=== PATIENT | female | born 1955 | race Caucasian/White ===

== ENCOUNTER 2020-04-05 10:34 | Outpatient (REF) | payer MEDICARE, SELFPAY ==
[2020-04-05 14:41] LABS: Alanine Aminotransferase 16 U/L (0-31); Albumin Level 4.2 g/dL (3.5-5.0); Alkaline Phosphatase 57 U/L (39-117); Anion Gap 13 (12-20); Aspartate Amino Transferase 18 U/L (5-31); Bilirubin Total 0.5 mg/dL (0.0-1.0); Blood Urea Nitrogen 16 mg/dL (9-16); Calcium 9.7 mg/dL (8.4-10.2); Carbon Dioxide 31 mmol/L (22-29); Chloride 103 mmol/L (96-108); Cholesterol 164 mg/dL; Estimated Glomerular Filt Rate > 60; Glucose Fasting 94 mg/dL (60-99); HDL Cholesterol 59 mg/dL; LDL Cholesterol Calculated 79 mg/dl; Potassium 4.4 mmol/l (3.3-5.1); Sodium 143 mmol/L (135-145); Triglycerides 131 mg/dL
[2020-04-05 14:52] LABS: Creatinine Urine 127.73 mg/dL; Microalbum/Creatinine Ratio Ur 4.6 ug/mg cr
[2020-04-05 14:56] LABS: Estimated Average Glucose 117 mg/dL; Hemoglobin A1c % 5.7 %
== END 2020-04-05 10:35 | disposition home or self-care (01) ==
LOC: HO.HMGCLDS 10:34
PROVIDERS: PCP Nurse Practitioner Family; Visit Provider Nurse Practitioner Family
DX: Z00.00 Encounter for general adult medical examination without abnormal findings (principal); E11.9 Type 2 diabetes mellitus without complications; Z13.220 Encounter for screening for lipoid disorders; Z13.29 Encounter for screening for other suspected endocrine disorder
CPT/HCPCS: 36415; 80053; 80061; 82043; 83036; 84443

== ENCOUNTER → 2020-04-15 09:51 | Outpatient (BNVA) | payer MEDICARE, SELFPAY | PROVIDERS: PCP Nurse Practitioner Family; Visit Provider Internal Medicine Cardiovascular Disease | DX: I48.0 Paroxysmal atrial fibrillation (principal); I10 Essential (primary) hypertension; G47.33 Obstructive sleep apnea (adult) (pediatric) | CPT/HCPCS: 93005; 99212 ==

== ENCOUNTER 2020-06-03 08:42 | Outpatient (REF) | payer MEDICARE, MEDICAID, SELFPAY ==
--- NOTE | ~2020-06-03 | MM_ITS ---
EXAMINATION: MM SCREENING DIGITAL BREAST TOMOSYNTHESIS, BILATERAL CLINICAL INFORMATION: Screening. Asymptomatic. History remote excisional biopsy right breast. The lifetime risk of breast cancer based on the Tyrer-Cuzick Model is 15%. COMPARISON: Mammography: 09/09/2018, 04/13/2016 TECHNIQUE: Digital breast tomosynthesis is performed in both the craniocaudal and mediolateral oblique views along with computer-aided detection (CAD). Synthesized 2D images are generated from the tomosynthesis. FINDINGS: There are scattered areas of fibroglandular density (ACR BI-RADS breast composition Category b). There are no significant masses, abnormal calcifications, or other abnormalities. There is an old excisional biopsy scar mid upper outer right breast again demonstrated as incidental finding. No significant changes from prior exams. MM/MM tomosynthesis screening BI IMPRESSION: No mammographic evidence of malignancy. Old excisional biopsy scar upper outer right breast. ASSESSMENT: BI-RADS 2: Benign RECOMMENDATION: Routine annual mammography screening. This patient's information was entered into a reminder system with a target due date for their next mammogram.
== END 2020-06-03 08:43 | disposition home or self-care (01) ==
LOC: HO.MAMMO 08:42
PROVIDERS: PCP Nurse Practitioner Family; Visit Provider Nurse Practitioner Family
DX: Z12.31 Encounter for screening mammogram for malignant neoplasm of breast (principal)
CPT/HCPCS: 77063; 77067

== ENCOUNTER 2020-07-09 10:02 | Emergency (ER) | payer MEDICARE, OTHER, SELFPAY ==
--- NOTE | ~2020-07-09 | CT_ITS ---
EXAMINATION: CT ANGIOGRAM NECK WITH CONTRAST CT ANGIOGRAM BRAIN WITH CONTRAST CLINICAL INFORMATION: Off balance and left arm numbness. COMPARISON: None. TECHNIQUE: Initial noncontrast head CT was performed. Test bolus sequences followed by intravenous administration 70 mL of Omnipaque 350. Helical imaging was performed in the axial plane from the thoracic inlet to the skull vertex. Delayed postcontrast imaging of the head was also performed. The data was processed at the radiographer technologist workstation for generation of MIP sequences. Angled MIPs and volume rendered reformatted images were also generated at an offline 3D workstation. Stenoses are assessed in accordance with NASCET criteria unless otherwise indicated. This CT examination was performed using dose optimization techniques as appropriate, variously including the following: *Automated exposure control *Adjustment of mA and/or kV according to patient size (this includes techniques or standardized protocols for targeted exams where dose is matched to indication/reason for exam; i.e. extremities or head) *Use of iterative reconstruction technique DLP: 2171 mGy-cm FINDINGS: Head CT: There is no intracranial hemorrhage, large acute infarction, or mass lesion. The ventricles are normal in size and configuration without evidence of hydrocephalus. No abnormal enhancement is seen on the postcontrast images. The visualized paranasal sinuses and mastoid air cells are clear. Neck CTA: Numerous collateral vessels are seen within the mediastinum and posterior paraspinal region. The phase of imaging is suboptimal for arterial evaluation. The aortic arch and great vessel origins are patent. The bilateral common carotid arteries are patent. Atheromatous changes are seen at the carotid bifurcations without significant stenosis. The vertebral arteries are difficult to evaluate due to significant streak artifact emanating from venous contrast. Where seen, the vertebral arteries appear patent Head CTA: Atheromatous changes are seen at the bilateral carotid siphons. No proximal vessel occlusion is seen. The ACAs and MCAs appear patent with symmetric collaterals. The bilateral vertebral arteries and basilar artery are patent. The certification technician are patent with symmetric collaterals. No definite aneurysm is seen. The dural venous sinuses appear patent. Non-vascular findings: The cervical soft tissues are unremarkable. No consolidation is seen in the upper lungs. Mild degenerative changes are seen within the spine. CT/CT angio head neck IMPRESSION: CT head: No intracranial hemorrhage or large acute infarction. CTA neck: No hemodynamically significant stenosis in the major arteries of the neck. Mild atheromatous changes seen at the carotid bifurcations. Prominent venous collaterals are seen to opacify the mediastinum and paraspinal region. This finding could be related to central venous stenosis or could be secondary to robust injection. CTA head: No large vessel occlusion or significant stenosis within the intracranial circulation.
--- NOTE | ~2020-07-09 | MR_ITS ---
EXAMINATION: MR BRAIN WITHOUT CONTRAST CLINICAL INFORMATION: Ataxia. Left arm numbness. COMPARISON: CTA head and neck from 07/09/2020. TECHNIQUE: MRI of the brain was obtained using routine sequences without contrast. FINDINGS: No focal restricted diffusion is demonstrated to suggest acute or subacute cerebral ischemia. No evidence of acute or chronic hemorrhagic products on heme-sensitive imaging. Scattered periventricular and deep white matter T2 FLAIR hyperintensities consistent with mild underlying microangiopathy. The ventricles are normal in morphology and size. There is a 1.3 cm calcified lesion along the anterior left aspect of the falx cerebri suggestive of a small calcified meningioma. No abnormal mass effect. No midline shift. The sella turcica is expanded and partially empty. No abnormalities of the posterior fossa with normal appearance of the brainstem and cerebellum. The cerebellar tonsils are positioned at the level the foramen magnum. Normal arterial and venous vascular flow voids are present. Normal, homogeneous marrow signal. Mild mucosal thickening of the paranasal sinuses. No signal abnormalities within the mastoids. Right-sided lens extraction. MR/MR head/brain wo con IMPRESSION: 1. No acute intracranial abnormalities. 2. Mild underlying microangiopathy.
[2020-07-09 10:03] VITALS: BP 149/71; PULSE 55; RESP 16; TEMP 36.7; O2SAT 96; BMI 36.1
--- NOTE | 2020-07-09 10:21 | ED_ITS ---
HPI - General Adult General Chief complaint: General Medical <Cody Kamara MD - Last Filed: 07/17/20 08:21> Stated complaint: TINGLING SENSATION HEAD <Cody Kamara MD - Last Filed: 07/17/20 08:21> Time Seen by Provider: 07/09/20 10:21 <Cody Kamara MD - Last Filed: 07/17/20 08:21> Source: patient <Cody Kamara MD - Last Filed: 07/17/20 08:21> Mode of arrival: ambulatory <Cody Kamara MD - Last Filed: 07/17/20 08:21> Limitations: no limitations <Cody Kamara MD - Last Filed: 07/17/20 08:21> History of Present Illness HPI narrative: patient feels off balance for the past three days with numbness to left arm. patient also complaining of Headache <Cody Kamara MD - Last Filed: 07/17/20 08:21> Onset (ago): day(s) <Cody Kamara MD - Last Filed: 07/17/20 08:21> Location: left and upper extremity <Cody Kamara MD - Last Filed: 07/17/20 08:21> Severity: moderate <Cody Kamara MD - Last Filed: 07/17/20 08:21> Associated symptoms: weakness <Cody Kamara MD - Last Filed: 07/17/20 08:21> Related Data Home medications: Home Medications Medication Instructions Recorded Confirmed flu vacc 2020-21(65yr 0.5 ml IM DIRECTED 02/27/20 07/15/20 up)-MF59C(PF) 60 mcg(15 mcgx4)/0.5 mL IM syringe Previous Rx's Medication Instructions Recorded cetirizine 10 mg tablet 10 mg PO BID #180 tab 02/28/20 atenolol 50 mg tablet 50 mg PO BID #180 tab 04/04/20 qanuepgtsd-lrgtbzrbaohrq-tmuzpwsg 1 tab PO Q12H PRN 30 Days #60 tab 04/04/20 50 mg-325 mg-40 mg tablet hydrochlorothiazide 25 mg tablet 25 mg PO DAILY 90 Days #90 tab 04/04/20 lisinopril 2.5 mg tablet 2.5 mg PO DAILY 90 Days #90 tab 04/04/20 omega-3 acid ethyl esters 1 gram 1 cap PO DAILY 90 Days #90 cap 04/04/20 capsule rosuvastatin 20 mg tablet 20 mg PO DAILY 90 Days #90 tab 04/04/20 venlafaxine 150 mg 150 mg PO DAILY 90 Days #90 cap 04/04/20 capsule,extended release 24 hr flecainide 50 mg tablet 150 mg PO .COMPLEX #30 tab 04/09/20 pregabalin 50 mg capsule 50 mg PO TID 90 Days #270 cap 04/11/20 apixaban 5 mg tablet 5 mg PO BID #180 tab 06/17/20 <Cody Kamara MD - Last Filed: 07/17/20 08:21> Allergies/adverse reactions: Allergies Allergy/AdvReac Type Severity Reaction Status Date / Time No Known Allergies Allergy Verified 07/15/20 16:18 [No Known Allergies*] <Cody Kamara MD - Last Filed: 07/17/20 08:21> Review of Systems Constitutional: Constitutional: Reports no additional constitutional complaints <Cody Kamara MD - Last Filed: 07/17/20 08:21> Eyes: Eyes: Reports no additional eye complaints <Cody Kamara MD - Last Filed: 07/17/20 08:21> ENT: Denies dizziness <Cody Kamara MD - Last Filed: 07/17/20 08:21> Cardiovascular: Cardiovascular: Reports no additional cardiovascular complaints <Cody Kamara MD - Last Filed: 07/17/20 08:21> Respiratory: Respiratory: Reports as per HPI <Cody Kamara MD - Last F iled: 07/17/20 08:21> Gastrointestinal: Gastrointestinal: Reports no additional gastrointestinal complaints <Cody Kamara MD - Last Filed: 07/17/20 08:21> Genitourinary: Genitourinary: Reports no additional female genitourinary complaints <Cody Kamara MD - Last Filed: 07/17/20 08:21> Musculoskeletal: Musculoskeletal: Reports no additional musculoskeletal complaints <Cody Kamara MD - Last Filed: 07/17/20 08:21> Integumentary/Breasts: Skin/Breast: Denies rash <Cody Kamara MD - Last Filed: 07/17/20 08:21> Neurologic: Reports system reviewed and no additional complaints, except as documented, Denies dizziness and Denies Sensory deficit (Neuro) <Cody Kamara MD - Last Filed: 07/17/20 08:21> Psychiatric: Psychiatric: Denies anxiety <Cody Kamara MD - Last Filed: 07/17/20 08:21> [facility] Past Medical History Medical History: Medical History Depression Diabetes HTN (hypertension) Migraines Obstructive sleep apnea Osteoarthritis Osteopenia Paroxysmal atrial fibrillation Peripheral neuropathy <Cody Kamara MD - Last Filed: 07/17/20 08:21> Surgical History: Surgical History History of abdominal hernia History of lumpectomy of right breast History of partial colectomy History of total abdominal hysterectomy and bilateral salpingo-oophorectomy <Cody Kamara MD - Last Filed: 07/17/20 08:21> Family History Family History: Family History Father No problems noted. Mother Diabetes mellitus Maternal Grandmother Diabetes mellitus Stroke Maternal Grandfather Lung cancer Smoker <Cody Kamara MD - Last Filed: 07/17/20 08:21> Social History Social History: Social History Alcohol intake: never Smoking Status: Never smoker Substance Use Type: Marijuana <Cody Kamara MD - Last Filed: 07/17/20 08:21> Physical Exam Vital Signs: Vital Signs: Last Vital Signs Temp 98.1 F 07/09/20 16:00 Pulse 50 07/09/20 16:00 Resp 18 07/09/20 16:00 BP 119/52 L 07/09/20 16:00 Pulse Ox 97 07/09/20 16:00 Body Mass Index 36.1 <Cody Kamara MD - Last Filed: 07/17/20 08:21> Vital Signs: Last Vital Signs Temp 98.1 F 07/09/20 16:00 Pulse 50 07/09/20 16:00 Resp 18 07/09/20 16:00 BP 119/52 L 07/09/20 16:00 Pulse Ox 97 07/09/20 16:00 Body Mass Index 36.1 <Rhiannon Ocampo DO - Last Filed: 07/09/20 19:37> Const: Nutritional Appearance: obese <Cody Kamara MD - Last Filed: 07/17/20 08:21> Orientation/consciousness: oriented to person and patient oriented x3 <Cody Kamara MD - Last Filed: 07/17/20 08:21> Limitations: no limitations <Cody Kamara MD - Last Filed: 07/17/20 08:21> HENMT: Head: Yes normal to inspection <Cody Kamara MD - Last Filed: 07/17/20 08:21> Ears: external ears normal <Cody Kamara MD - Last Filed: 07/17/20 08:21> General nose exam: Normal external nose present <Cody Kamara MD - Last Filed: 07/17/20 08:21> Mouth: Normal oral and palatal mucosa present and oropharynx normal <Cody Kamara MD - Last Filed: 07/17/20 08:21> Throat: Yes posterior oropharynx normal <Cody Kamara MD - Last Filed: 07/17/20 08:21> Eyes: General: appearance normal, both eyes and all related structures <Cody Kamara MD - Last Filed: 07/17/20 08:21> Neck: Other: supple <Cody Kamara MD - Last Filed: 07/17/20 08:21> Neck: Yes normal visual inspection <Cody Kamara MD - Last Filed: 07/17/20 08:21> Chest: Chest palpation & inspection: normal inspection of the chest <Cody Kamara MD - Last Filed: 07/17/20 08:21> Resp: Auscultation: clear to auscultation bilaterally <Cody Kamara MD - Last Filed: 07/17/20 08:21> Cardio: Jugular venous distension: no JVD <Cody Kamara MD - Last Filed: 07/17/20 08:21> Rate: regular rate <Cody Kamara MD - Last Filed: 07/17/20 08:21> Rhythm: regular rhythm <Cody Kamara MD - Last Filed: 07/17/20 08:21> Heart sounds: S1 normal heart sound present and S2 normal heart sound present <Cody Kamara MD - Last Filed: 07/17/20 08:21> GI: Inspection: Yes normal to inspection <Cody Kamara MD - Last Filed: 07/17/20 08:21> Palpation (GI): Soft to palpation, nontender and No hepatosplenomegaly present <Cody Kamara MD - Last Filed: 07/17/20 08:21> Auscultation: normal bowel sounds <Cody Kamara MD - Last Filed: 07/17/20 08:21> : General: Yes no CVA tenderness <Cody Kamaar MD - Last Filed: 07/17/20 08:21> Back/Spine/Pelvis: Back: no CVA tenderness <Cody Kamara MD - Last Filed: 07/17/20 08:21> Skin: General skin exam: no rashes or lesions noted <Cody Kamara MD - Last Filed: 07/17/20 08:21> Neuro: General: oriented to person and patient oriented x3 <Cody Kamara MD - Last Filed: 07/17/20 08:21> Cranial nerves: Yes CN's II-XII intact bilaterally <Cody Kamara MD - Last Filed: 07/17/20 08:21> Motor exam (neuro): 5/5 motor strength present throughout <Cody Kamara MD - Last Filed: 07/17/20 08:21> Sensory Exam: No Sensory deficit (Neuro) <Cody Kamara MD - Last Filed: 07/17/20 08:21> Extrem: General: Yes normal to inspection <Cody Kamara MD - Last Filed: 07/17/20 08:21> Psych: Appearance: grossly normal <Cody Kamara MD - Last Filed: 04/28/21 08:21> NIH Stroke Scale Internal: 24 hours post onset of symptoms within 20 min <Cody Kamara MD - Last Filed: 07/17/20 08:21> Level of Consciousness: Alert <Cody Kamara MD - Last Filed: 07/17/20 08:21> Level of Consciousness Questions: Answers both questions correctly <Cody Kamara MD - Last Filed: 07/17/20 08:21> Level of Consciousness Commands: Performs both tasks correctly <Cody Kamara MD - Last Filed: 07/17/20 08:21> Best Gaze: Normal <Cody Kamara MD - Last Filed: 07/17/20 08:21> Visual: No visual loss <Cody Kamara MD - Last Filed: 07/17/20 08:21> Facial Palsy: Normal <Cody Kamara MD - Last Filed: 07/17/20 08:21> Motor Arm (Right): No drift <Cody Kamara MD - Last Filed: 07/17/20 08:21> Motor Arm (Left): No drift <Cody Kamara MD - Last Filed: 07/17/20 08:21> Motor Leg (Right): No drift <Cody Kamara MD - Last Filed: 07/17/20 08:21> Motor Leg (Left): No drift <Cody Kamara MD - Last Filed: 07/17/20 08:21> Limb Ataxia: Absent <Cody Kamara MD - Last Filed: 07/17/20 08:21> Sensory: Mild to moderate sensory loss <Cody Kamara MD - Last Filed: 07/17/20 08:21> Best Language: No aphasia <Cody Kamara MD - Last Filed: 07/17/20 08:21> Dysarthia: Normal <Cody Kamara MD - Last Filed: 07/17/20 08:21> Extinction and Inattention: No abnormality <Cody Kamara MD - Last Filed: 07/17/20 08:21> Score: 1 <Cody Kamara MD - Last Filed: 07/17/20 08:21> Course Course Course Narrative: Discussed with Dr. Zimmerman of neuro will try and obtain MRI <Cody Kamara MD - Last Filed: 07/17/20 08:21> sign out received that symptoms seemed atypical MRI requested by Neurology per Dr. Kamara if normal it would be okay to send home, all of patient's symptoms resolved and MRI negative <Rhiannon Ocampo DO - Last Filed: 07/09/20 19:37> Medical Decision Making Lab Data Result diagrams: : 07/09/20 11:25 07/09/20 11:25 <Cody Kamara MD - Last Filed: 07/17/20 08:21> Labs: Lab Results 07/09/20 07/09/20 07/09/20 Range/Units 10:30 11:25 11:25 WBC 8.1 (4.8-10.8) X10*3/uL RBC 4.97 (4.20-5.50) X10*6/uL Hgb 15.0 (12.0-16.0) g/dl Hct 43.9 (37-47) % MCV 88.3 (80-98) fL MCH 30.2 (27.0-33.0) pg MCHC 34.2 (31.0-35.0) g/dl RDW 13.2 (11.0-16.0) % Plt Count 213 (160-400) X10*3/uL MPV 10.0 (9.4-12.3) fL Immature Gran % (Auto) 0.4 (0.0-0.4) % Neut % (Auto) 72.2 (45-73) % Lymph % (Auto) 20.7 (20-40) % [place] % (Auto) 4.7 (2-11) % Eos % (Auto) 1.6 (0-4) % Baso % (Auto) 0.4 (0-2) % Lymph # (Auto) 1.7 (1.2-4.9) X10*3/uL [place] # (Auto) 0.4 (0.1-1.2) X10*3/uL Eos # (Auto) 0.1 (0.0-0.4) X10*3/uL Baso # (Auto) 0.0 (0.0-0.2) X10*3/uL Abs Immat Gran (auto) 0.03 (0.00-0.03) X10*3/uL Absolute Neuts (auto) 5.8 (2.0-8.3) X10*3/uL Absolute Nucleated RBC 0.000 (0.0-0.012) X10*3/uL Nucleated RBC % (auto) 0.0 (0.0-0.2) /100WBC Sodium 144 (135-145) mmol/L Potassium 3.5 (3.3-5.1) mmol/L Chloride 102 (96-108) mmol/L Carbon Dioxide 30 H (22-29) mmol/L Anion Gap 16 (12-20) BUN 13 (9-16) mg/dL Creatinine 0.73 (0.5-1.4) mg/dL Estim Creat Clear Calc 88.0 Estimated GFR > 60 POC Glucose 135 H (60-115) mg/dL Random Glucose 119 H (60-115) mg/dL Calcium 10.0 (8.4-10.2) mg/dL Troponin I High Sens (<3.5-17.0) ng/L 07/09/20 Range/Units 11:25 WBC (4.8-10.8) X10*3/uL RBC (4.20-5.50) X10*6/uL Hgb (12.0-16.0) g/dl Hct (37-47) % MCV (80-98) fL MCH (27.0-33.0) pg MCHC (31.0-35.0) g/dl RDW (11.0-16.0) % Plt Count (160-400) X10*3/uL MPV (9.4-12.3) fL Immature Gran % (Auto) (0.0-0.4) % Neut % (Auto) (45-73) % Lymph % (Auto) (20-40) % [place] % (Auto) (2-11) % Eos % (Auto) (0-4) % Baso % (Auto) (0-2) % Lymph # (Auto) (1.2-4.9) X10*3/uL [place] # (Auto) (0.1-1.2) X10*3/uL Eos # (Auto) (0.0-0.4) X10*3/uL Baso # (Auto) (0.0-0.2) X10*3/uL Abs Immat Gran (auto) (0.00-0.03) X10*3/uL Absolute Neuts (auto) (2.0-8.3) X10*3/uL Absolute Nucleated RBC (0.0-0.012) X10*3/uL Nucleated RBC % (auto) (0.0-0.2) /100WBC Sodium (135-145) mmol/L Potassium (3.3-5.1) mmol/L Chloride (96-108) mmol/L Carbon Dioxide (22-29) mmol/L Anion Gap (12-20) BUN (9-16) mg/dL Creatinine (0.5-1.4) mg/dL Estim Creat Clear Calc Estimated GFR POC Glucose (60-115) mg/dL Random Glucose (60-115) mg/dL Calcium (8.4-10.2) mg/dL Troponin I High Sens < 3.5 (<3.5-17.0) ng/L <Cody Kamara MD - Last Filed: 07/17/20 08:21> Lab Results 07/09/20 07/09/20 07/09/20 Range/Units 10:30 11:25 11:25 WBC 8.1 (4.8-10.8) X10*3/uL RBC 4.97 (4.20-5.50) X10*6/uL Hgb 15.0 (12.0-16.0) g/dl Hct 43.9 (37-47) % MCV 88.3 (80-98) fL MCH 30.2 (27.0-33.0) pg MCHC 34.2 (31.0-35.0) g/dl RDW 13.2 (11.0-16.0) % Plt Count 213 (160-400) X10*3/uL MPV 10.0 (9.4-12.3) fL Immature Gran % (Auto) 0.4 (0.0-0.4) % Neut % (Auto) 72.2 (45-73) % Lymph % (Auto) 20.7 (20-40) % [place] % (Auto) 4.7 (2-11) % Eos % (Auto) 1.6 (0-4) % Baso % (Auto) 0.4 (0-2) % Lymph # (Auto) 1.7 (1.2-4.9) X10*3/uL [place] # (Auto) 0.4 (0.1-1.2) X10*3/uL Eos # (Auto) 0.1 (0.0-0.4) X10*3/uL Baso # (Auto) 0.0 (0.0-0.2) X10*3/uL Abs Immat Gran (auto) 0.03 (0.00-0.03) X10*3/uL Absolute Neuts (auto) 5.8 (2.0-8.3) X10*3/uL Absolute Nucleated RBC 0.000 (0.0-0.012) X10*3/uL Nucleated RBC % (auto) 0.0 (0.0-0.2) /100WBC Sodium 144 (135-145) mmol/L Potassium 3.5 (3.3-5.1) mmol/L Chloride 102 (96-108) mmol/L Carbon Dioxide 30 H (22-29) mmol/L Anion Gap 16 (12-20) BUN 13 (9-16) mg/dL Creatinine 0.73 (0.5-1.4) mg/dL Estim Creat Clear Calc 88.0 Estimated GFR > 60 POC Glucose 135 H (60-115) mg/dL Random Glucose 119 H (60-115) mg/dL Calcium 10.0 (8.4-10.2) mg/dL Troponin I High Sens (<3.5-17.0) ng/L 07/09/20 Range/Units 11:25 WBC (4.8-10.8) X10*3/uL RBC (4.20-5.50) X10*6/uL Hgb (12.0-16.0) g/dl Hct (37-47) % MCV (80-98) fL MCH (27.0-33.0) pg MCHC (31.0-35.0) g/dl RDW (11.0-16.0) % Plt Count (160-400) X10*3/uL MPV (9.4-12.3) fL Immature Gran % (Auto) (0.0-0.4) % Neut % (Auto) (45-73) % Lymph % (Auto) (20-40) % [place] % (Auto) (2-11) % Eos % (Auto) (0-4) % Baso % (Auto) (0-2) % Lymph # (Auto) (1.2-4.9) X10*3/uL [place] # (Auto) (0.1-1.2) X10*3/uL Eos # (Auto) (0.0-0.4) X10*3/uL Baso # (Auto) (0.0-0.2) X10*3/uL Abs Immat Gran (auto) (0.00-0.03) X10*3/uL Absolute Neuts (auto) (2.0-8.3) X10*3/uL Absolute Nucleated RBC (0.0-0.012) X10*3/uL Nucleated RBC % (auto) (0.0-0.2) /100WBC Sodium (135-145) mmol/L Potassium (3.3-5.1) mmol/L Chloride (96-108) mmol/L Carbon Dioxide (22-29) mmol/L Anion Gap (12-20) BUN (9-16) mg/dL Creatinine (0.5-1.4) mg/dL Estim Creat Clear Calc Estimated GFR POC Glucose (60-115) mg/dL Random Glucose (60-115) mg/dL Calcium (8.4-10.2) mg/dL Troponin I High Sens < 3.5 (<3.5-17.0) ng/L <Rhiannon Ocampo DO - Last Filed: 07/09/20 19:37> ECG Data Attestation: I personally reviewed and interpreted this ECG as follows: <Cody Kamara MD - Last Filed: 07/17/20 08:21> Interpretation: sinus bradycardia rate 50, no st or twave changes <Cody Kamara MD - Last Filed: 07/17/20 08:21> Discharge Plan Discharge Clinical Impression: Paresthesia <Cody Kamara MD - Last Filed: 07/17/20 08:21> Patient Disposition: Home, Self-Care <Cody Kamara MD - Last Filed: 07/17/20 08:21> Instructions: Paresthesia (ED) <Cody Kamara MD - Last Filed: 07/17/20 08:21> Additional Instructions: return to ED for any worsening symptoms or concerns <Cody Kamara MD - Last Filed: 07/17/20 08:21> Prescriptions: No Action cetirizine 10 mg tablet 10 mg PO BID Qty: 180 RF: 2 atenolol 50 mg tablet 50 mg PO BID Qty: 180 RF: 0 dgwpdxgjwa-ieumpkzyjolio-zmfz 50-325-40 mg tablet 1 tab PO Q12H PRN (Reason: headache) 30 Days Qty: 60 RF: 0 hydrochlorothiazide 25 mg tablet 25 mg PO DAILY 90 Days Qty: 90 RF: 2 lisinopril 2.5 mg tablet 2.5 mg PO DAILY 90 Days Qty: 90 RF: 3 omega-3 acid ethyl esters 1 gram capsule 1 cap PO DAILY 90 Days Qty: 90 RF: 3 rosuvastatin 20 mg tablet 20 mg PO DAILY 90 Days Qty: 90 RF: 3 venlafaxine 150 mg capsule,extended release 24hr 150 mg PO DAILY 90 Days Qty: 90 RF: 1 flecainide 50 mg tablet 150 mg PO .COMPLEX Qty: 30 RF: 0 pregabalin 50 mg capsule 50 mg PO TID 90 Days Qty: 270 RF: 0 apixaban [Eliquis] 5 mg tablet 5 mg PO BID Qty: 180 RF: 3 Fluad Quad 2020-21(65y up)(PF) 60 mcg (15 mcg x 4)/0.5 mL syringe 0.5 ml IM DIRECTED RF: 0 <Cody Kamara MD - Last Filed: 07/17/20 08:21> Referrals: John Martinez, [employer]ACHINE OPERATOR- [Primary Care Provider] - 2 days <Cody Kamara MD - Last Filed: 07/17/20 08:21> Interventions: ED Discharge Assessment Last Done: 07/09/20 20:24 <Cody Kamara MD - Last Filed: 07/17/20 08:21> Discharge Date/Time: 07/09/20 20:25 <Cody Kamara MD - Last Filed: 07/17/20 08:21>
--- NOTE | 2020-07-09 10:22 | PC.NURSE ---
Pt reporting feeling lousy the day before yesterday and then yesterday she felt unwell. Today she reports that she feels wobbly and off balance. She feels that her left arm is tingly .
[2020-07-09 10:25] VITALS: BP 155/70; PULSE 55; RESP 18; O2SAT 98
--- NOTE | 2020-07-09 10:32 | ECG_ITS ---
Test Reason : LIGHTHEADED Blood Pressure : / mmHG Vent. Rate : 048 BPM Atrial Rate : 048 BPM P-R Int : 158 ms QRS Dur : 102 ms QT Int : 504 ms P-R-T Axes : 053 013 020 degrees QTc Int : 450 ms Sinus bradycardia Otherwise normal ECG No previous ECGs available Referred By: Cody Kamara Electronically Signed By:Bogdan Cox
[2020-07-09 10:38] LABS: Glucose, Whole Blood 135 mg/dL (60-115)
[2020-07-09 11:46] LABS: MANUAL DIFF FLAG NO
[2020-07-09 11:49] LABS: Basophils Percent Auto 0.4 % (0-2); Eosinophils Absolute Auto 0.1 X10*3/uL (0.0-0.4); Eosinophils Percent Auto 1.6 % (0-4); Hematocrit 43.9 % (37-47); Imm Gran Abs Auto 0.03 X10*3/uL (0.00-0.03); Imm Gran Pct Auto 0.4 % (0.0-0.4); Lymphocytes Absolute Auto 1.7 X10*3/uL (1.2-4.9); Lymphocytes Percent Auto 20.7 % (20-40); Mean Corpuscular HGB Conc 34.2 g/dl (31.0-35.0); Mean Corpuscular Hemoglobin 30.2 pg (27.0-33.0); Mean Corpuscular Volume 88.3 fL (80-98); Monocytes Absolute Auto 0.4 X10*3/uL (0.1-1.2); Monocytes Percent Auto 4.7 % (2-11); Neutrophils Absolute Auto 5.8 X10*3/uL (2.0-8.3); Neutrophils Percent Auto 72.2 % (45-73); Platelet Count 213 X10*3/uL (160-400); Red Blood Count 4.97 X10*6/uL (4.20-5.50); Red Cell Distribution Width 13.2 % (11.0-16.0); White Blood Count 8.1 X10*3/uL (4.8-10.8)
[2020-07-09 12:11] LABS: Anion Gap 16 (12-20); Blood Urea Nitrogen 13 mg/dL (9-16); Carbon Dioxide 30 mmol/L (22-29); Chloride 102 mmol/L (96-108); Estimated Glomerular Filt Rate > 60; Glucose Random 119 mg/dL (60-115); Potassium 3.5 mmol/L (3.3-5.1); Sodium 144 mmol/L (135-145)
[2020-07-09 12:18] LABS: Troponin-I High Sensitivity < 3.5 ng/L (<3.5-17.0)
[2020-07-09] MEDS: iohexoL 350 MG/ML 100 ML INFUS..BTL 70 ML IV (13:02)
--- NOTE | 2020-07-09 13:35 | PC.NURSE ---
Awaiting results of CT. PT calm and resting in bed at this time.
[2020-07-09 13:36] VITALS: BP 131/54; PULSE 56; RESP 18; TEMP 36.8; O2SAT 96
[2020-07-09 16:00] VITALS: BP 119/52; PULSE 50; RESP 18; TEMP 36.7; O2SAT 97
--- NOTE | 2020-07-09 16:24 | PC.NURSE ---
Pt awwaiting MRI. VSS.She reports feeling better at this time.
--- NOTE | 2020-07-09 17:59 | PC.NURSE ---
Pt returned from MRI. Awaiting results at this time.
== END 2020-07-09 20:25 | disposition home or self-care (01) ==
PROVIDERS: Emergency Medicine; Emergency Provider Emergency Medicine; PCP Nurse Practitioner Family
DX: R20.2 Paresthesia of skin (principal); R51.9 Headache, unspecified; E11.9 Type 2 diabetes mellitus without complications; I10 Essential (primary) hypertension; I48.0 Paroxysmal atrial fibrillation; F12.90 Cannabis use, unspecified, uncomplicated
CPT/HCPCS: 36415; 70496; 70498; 70551; 80048; 82947; 84484; 85025; 93005; 99284; Q9967

== ENCOUNTER 2020-07-16 10:47 | Outpatient (REF) | payer MEDICARE, MEDICAID, SELFPAY ==
[2020-07-16 14:05] LABS: MANUAL DIFF FLAG NO
[2020-07-16 14:15] LABS: Basophils Percent Auto 0.5 % (0-2); Eosinophils Absolute Auto 0.3 X10*3/uL (0.0-0.4); Eosinophils Percent Auto 5.5 % (0-4); Hematocrit 46.2 % (37-47); Hemoglobin 15.5 g/dl (12.0-16.0); Imm Gran Abs Auto 0.01 X10*3/uL (0.00-0.03); Imm Gran Pct Auto 0.2 % (0.0-0.4); Lymphocytes Absolute Auto 1.6 X10*3/uL (1.2-4.9); Lymphocytes Percent Auto 26.1 % (20-40); Mean Corpuscular HGB Conc 33.5 g/dl (31.0-35.0); Mean Corpuscular Hemoglobin 29.7 pg (27.0-33.0); Mean Corpuscular Volume 88.5 fL (80-98); Mean Platelet Volume 10.6 fL (9.4-12.3); Monocytes Absolute Auto 0.5 X10*3/uL (0.1-1.2); Monocytes Percent Auto 8.2 % (2-11); Neutrophils Absolute Auto 3.7 X10*3/uL (2.0-8.3); Neutrophils Percent Auto 59.5 % (45-73); Platelet Count 218 X10*3/uL (160-400); Red Blood Count 5.22 X10*6/uL (4.20-5.50); Red Cell Distribution Width 12.9 % (11.0-16.0); White Blood Count 6.2 X10*3/uL (4.8-10.8)
[2020-07-16 14:41] LABS: INTERNATIONAL NORM RATIO 1.3 (0.9-1.1)
[2020-07-16 14:43] LABS: Partial Thromboplastin Time 36.9 SEC (24.1-38.0)
[2020-07-16 14:44] LABS: Alanine Aminotransferase 15 U/L (0-31); Albumin Level 4.5 g/dL (3.5-5.0); Alkaline Phosphatase 66 U/L (39-117); Anion Gap 15 (12-20); Aspartate Amino Transferase 16 U/L (5-31); Bilirubin Total 0.5 mg/dL (0.0-1.0); Blood Urea Nitrogen 17 mg/dL (9-16); Calcium 10.6 mg/dL (8.4-10.2); Carbon Dioxide 33 mmol/L (22-29); Chloride 99 mmol/L (96-108); Estimated Glomerular Filt Rate > 60; Glucose Random 118 mg/dL (60-115); Potassium 4.2 mmol/L (3.3-5.1); Sodium 143 mmol/L (135-145); Total Protein 7.5 g/dL (6.5-8.0)
[2020-07-16 14:47] LABS: TSH reflex Free T4 1.58 uIU/mL (0.32-4.0)
[2020-07-16 15:15] LABS: Folate 16.5 ng/mL (> or = 4.0); Vitamin B12 1288 pg/mL (200-900)
== END 2020-07-16 10:48 | disposition home or self-care (01) ==
LOC: HO.HMGCLDS 10:47
PROVIDERS: PCP Nurse Practitioner Family; Visit Provider Nurse Practitioner Family
DX: Z01.818 Encounter for other preprocedural examination (principal); R51.9 Headache, unspecified
CPT/HCPCS: 36415; 80053; 82607; 82746; 84443; 85025; 85610; 85730

== ENCOUNTER 2020-07-18 08:01 | Emergency (ER) | payer MEDICARE, MEDICAID, SELFPAY ==
--- NOTE | ~2020-07-18 | XR_ITS ---
EXAMINATION: XR CHEST CLINICAL INFORMATION: Chest numbness COMPARISON: None TECHNIQUE: Frontal view of the chest was obtained. FINDINGS: No significant abnormality is noted involving the heart, lungs, mediastinum, bony thorax or soft tissues. XR/XR chest 1V IMPRESSION: Unremarkable examination.
[2020-07-18 08:12] VITALS: BP 138/49; BP 148/92; PULSE 51; PULSE 78; RESP 16; TEMP 36.8; O2SAT 97; O2SAT 98; BMI 35.6
--- NOTE | 2020-07-18 09:45 | ED.ARRPALP ---
HPI - Arrhythmia/Palpitations General Chief Complaint: Arrhythmia/Palpitations <Echo Mayorga PA-C - Last Filed: 07/18/20 16:18> Stated Complaint: weakness <Echo Mayorga PA-C - Last Filed: 07/18/20 16:18> Time Seen by Provider: 07/18/20 09:25 <Echo Mayorga PA-C - Last Filed: 07/18/20 16:18> Source: patient <Echo Mayorga PA-C - Last Filed: 07/18/20 16:18> Mode of arrival: EMS <ELIUD Gutierrez Last Filed: 07/18/20 16:18> Limitations: no limitations <ELIUD Gutierrez Last Filed: 07/18/20 16:18> History of Present Illness HPI narrative: Patient is a 64-year-old female with a past medical history of paroxysmal AFib on Eliquis, DM2, HTN, PAT who has had 2 episodes of heart palpitations over the last 2 nights, each episode was approximately 15-20 minutes so she did not take her flecainide because she was instructed to only take it if they last longer than 30 minutes. She also has associated numbness and tingling down bilateral arms up through her neck into her head. She was evaluated in this emergency department last week for a numbness and tingling in her head, MRI was negative. Patient endorses dizziness and slight shortness of breath. She denies fevers, chest pain, abdominal pain, changes in her bladder or bowels. Incidentally, patient had cataract surgery left eye yesterday, has no complaints about the eye. <Echo Mayorga PA-C - Last Filed: 07/18/20 16:18> Related Data Home Medications: Home Medications Medication Instructions Recorded Confirmed bromfenac [Prolensa] 1 drp OPHTHALMIC-RIGHT DAILY 07/18/20 07/18/20 loteprednol etabonate [Lotemax SM] 1 drp OPHTHALMIC (EYE) TID 07/18/20 07/18/20 ofloxacin 1 drp OPHTHALMIC (EYE) QID 07/18/20 07/18/20 tobramycin 1 drp OPHTHALMIC (EYE) Q4H 07/18/20 07/18/20 Previous Rx's Medication Instructions Recorded cetirizine 10 mg tablet 10 mg PO BID #180 tab 02/28/20 atenolol 50 mg tablet 50 mg PO BID #180 tab 04/04/20 ifelxwzgdr-pdvwrjxsnhgay-xdazeqip 1 tab PO Q12H PRN 30 Days #60 tab 04/04/20 50 mg-325 mg-40 mg tablet hydrochlorothiazide 25 mg tablet 25 mg PO DAILY 90 Days #90 tab 04/04/20 lisinopril 2.5 mg tablet 2.5 mg PO DAILY 90 Days #90 tab 04/04/20 omega-3 acid ethyl esters 1 gram 1 cap PO DAILY 90 Days #90 cap 04/04/20 capsule rosuvastatin 20 mg tablet 20 mg PO DAILY 90 Days #90 tab 04/04/20 venlafaxine 150 mg 150 mg PO DAILY 90 Days #90 cap 04/04/20 capsule,extended release 24 hr pregabalin 50 mg capsule 50 mg PO TID 90 Days #270 cap 04/11/20 apixaban 5 mg tablet 5 mg PO BID #180 tab 06/17/20 flecainide 50 mg PO Q12H #60 tab 07/18/20 <Echo Mayorga PA-C - Last Filed: 07/18/20 16:18> Allergies/Adverse Reactions: Allergies Allergy/AdvReac Type Severity Reaction Status Date / Time No Known Allergies Allergy Verified 07/15/20 16:18 [No Known Allergies*] <Echo Mayorga PA-C - Last Filed: 07/18/20 16:18> Review of Systems Review of Systems: Yes all other systems are reviewed and are negative <Echo Mayorga PA-C - Last Filed: 07/18/20 16:18> ENT: Reports Normal hearing present <Echo Mayorag PA-C - Last Filed: 07/18/20 16:18> Neurologic: Reports Normal hearing present <Echo Mayorga PA-C - Last Filed: 07/18/20 16:18> [facility] Past Medical History Medical History: Medical History Depression Diabetes HTN (hypertension) Migraines Obstructive sleep apnea Osteoarthritis Osteopenia Paroxysmal atrial fibrillation Peripheral neuropathy <Echo Mayorga PA-C - Last Filed: 07/18/20 16:18> Surgical History: Surgical History History of abdominal hernia History of lumpectomy of right breast History of partial colectomy History of total abdominal hysterectomy and bilateral salpingo-oophorectomy <Echo Mayorga PA-C - Last Filed: 07/18/20 16:18> Family History Family History: Family History Father No problems noted. Mother Diabetes mellitus Maternal Grandmother Diabetes mellitus Stroke Maternal Grandfather Lung cancer Smoker <Echo Mayorga PA-C - Last Filed: 07/18/20 16:18> Social History Social History: Social History Alcohol intake: never Smoking Status: Never smoker Use of substances other than those prescribed or required for medical reasons: No Substance Use Type: Marijuana Advance Directives: Yes Advance Directives Information Provided: Yes Advance Directives on File: No <Echo Mayorga PA-C - Last Filed: 07/18/20 16:18> Physical Exam Vital Signs: Vital Signs: Last Vital Signs Temp 98.2 F 07/18/20 08:12 Pulse 48 L 07/18/20 14:09 Resp 19 07/18/20 14:09 BP 110/50 L 07/18/20 14:09 Pulse Ox 97 07/18/20 14:09 Body Mass Index 35.6 <Echo Mayorga PA-C - Last Filed: 07/18/20 16:18> Vital Signs: Last Vital Signs Temp 98.2 F 07/18/20 08:12 Pulse 48 L 07/18/20 14:09 Resp 07/18/20 14:09 BP 110/50 L 07/18/20 14:09 Pulse Ox 97 07/18/20 14:09 Body Mass Index 35.6 <Cody Kamara MD - Last Filed: 07/18/20 10:18> Const: General: cooperative, healthy appearing, comfortable and no acute distress <Echo Mayorga PA-C - Last Filed: 07/18/20 16:18> Nutritional Appearance: average body habitus <ANH GutierrezMSI [employer] Last Filed: 07/18/20 16:18> Orientation/consciousness: patient oriented x3 <ANH GutierrezMSI [employer] Last Filed: 07/18/20 16:18> Limitations: no limitations <ANH GutierrezMSI [employer] Last Filed: 07/18/20 16:18> HENMT: Head: Yes normal to inspection, Yes No palpable skull fracture present, Yes normocephalic and Yes atraumatic <ANH GutierrezNekted - Last Filed: 07/18/20 16:18> Ears: hearing grossly normal bilaterally <NITZA GutierrezR[employer]Files Last Filed: 07/18/20 16:18> General nose exam: Normal external nose present <ANH GutierrezLogan See[employer] Last Filed: 07/18/20 16:18> Face and sinus: Yes normal facial exam <ANH GutierrezMSI [employer] Last Filed: 07/18/20 16:18> Eyes: General: appearance normal, both eyes and all related structures <ANH GutierrezMS[employer] Last Filed: 07/18/20 16:18> Pupils: Equal, round and reactive pupils present <ANH GutierrezMS[employer] Last Filed: 07/18/20 16:18> EOM: EOMs intact bilaterally <ANH GutierrezMS[employer] Last Filed: 07/18/20 16:18> Neck: Neck: Yes normal visual inspection, Yes full ROM, Yes trachea midline, Yes supple and Yes no JVD <ANH GutierrezMS[employer] Last Filed: 07/18/20 16:18> Resp: Effort & Inspection: normal respiratory effort and able to speak in complete sentences <ANH GutierrezMSI [employer] Last Filed: 07/18/20 16:18> Auscultation: clear to auscultation bilaterally <ANH Gutierrez [employer] Last Filed: 07/18/20 16:18> Cardio: Rate: bradycardic <Echo Mayorga PA-C [employer] Last Filed: 07/18/20 16:18> Rhythm: regular rhythm <ANH GutierrezC - Last Filed: 07/18/20 16:18> GI: Inspection: Yes normal to inspection <Echo Mayorga PA-C - Last Filed: 07/18/20 16:18> Palpation (GI): Soft to palpation and nontender <Echo Mayorga PA-C - Last Filed: 07/18/20 16:18> Neuro: General: patient oriented x3 <Ecoh Mayorga PA-C - Last Filed: 07/18/20 16:18> Cranial nerves: Yes Equal, round and reactive pupils present, Yes Nystagmus not present, Yes Normal facial strength present, Yes Normal hearing present and Yes Ability to bilaterally rotate head present <Echo Mayorga PA-C - Last Filed: 07/18/20 16:18> Cognition (Neuro): normal cognition <Echo Mayorga PA-C - Last Filed: 07/18/20 16:18> Extrem: General: Yes full ROM and Yes no pedal edema <Echo Mayorga PA-C - Last Filed: 07/18/20 16:18> Psych: Appearance: grossly normal <Echo Mayorga PA-C - Last Filed: 07/18/20 16:18> Course Course Course Narrative: Patient is a 64-year-old female with a past medical history of paroxysmal AFib on Eliquis, DM2, HTN, PAT who has had 2 episodes of heart palpitations over the last 2 nights, each episode was approximately 15-20 minutes. Currently, patient is bradycardic and symptomatic with shortness of breath and dizziness. BP 138/49, RR 16, O2 97% on RA. EKG sinus Esau. Will get cardiac labs, pt on monitor. Text to Dr. Brown, he will come see her in the ED. <Echo Mayorga PA-C - Last Filed: 07/18/20 16:18> I have discussed the case and management with the ALANNAH <Cody Kamara MD - Last Filed: 07/18/20 10:18> Reevaluation(s) Reevaluation #1: chemistry not resulted, hemolyzed Dr Brown evaluated patient, he asked to give the patient 50 mg flecinaide and monitor her for couple of hours. If she tolerates the medication well, she can be discharged on flecainide 50 mg b.i.d. and reduce the atenolol to 25 mg b.i.d.. He will also arrange for her to have a Holter monitor, outpatient. <Echo Mayorga PA-C - Last Filed: 07/18/20 16:18> Time: 12:03 <Echo Mayorga PA-C - Last Filed: 07/18/20 16:18> Reevaluation #2: Patient reports she is feeling well, no issues since taking the like any that approximately an hour and 20 minutes ago. Will continue to monitor patient for another 90 minutes and then discharge home if no issues. <Echo Mayorga PA-C - Last Filed: 07/18/20 16:18> Time: 14:07 <Echo Mayorga PA-C - Last Filed: 07/18/20 16:18> Reevaluation #3: Patient reports feeling well, she had no issues after taking her 1st dose of Flecinaide. Both prescriptions have been sent to her pharmacy already, her pharmacy texture that they are ready for pickup. Will discharge. <Echo Mayorga PA-C - Last Filed: 07/18/20 16:18> Time: 16:17 <Echo Mayorga PA-C - Last Filed: 07/18/20 16:18> MDM - Arrhythmia/Palpitations Lab Data Result diagrams: : 07/18/20 10:16 07/18/20 12:27 <Echo Mayorga PA-C - Last Filed: 07/18/20 16:18> Labs: Lab Results 07/18/20 07/18/20 07/18/20 Range/Units 10:16 10:16 10:16 WBC 7.8 (4.8-10.8) X10*3/uL RBC 5.20 (4.20-5.50) X10*6/uL Hgb 15.8 (12.0-16.0) g/dl Hct 45.6 (37-47) % MCV 87.7 (80-98) fL MCH 30.4 (27.0-33.0) pg MCHC 34.6 (31.0-35.0) g/dl RDW 12.9 (11.0-16.0) % Plt Count 218 (160-400) X10*3/uL MPV 9.5 (9.4-12.3) fL Immature Gran % (Auto) 0.1 (0.0-0.4) % Neut % (Auto) 67.6 (45-73) % Lymph % (Auto) 23.7 (20-40) % [place] % (Auto) 5.1 (2-11) % Eos % (Auto) 3.1 (0-4) % Baso % (Auto) 0.4 (0-2) % Lymph # (Auto) 1.9 (1.2-4.9) X10*3/uL [place] # (Auto) 0.4 (0.1-1.2) X10*3/uL Eos # (Auto) 0.2 (0.0-0.4) X10*3/uL Baso # (Auto) 0.0 (0.0-0.2) X10*3/uL Abs Immat Gran (auto) 0.01 (0.00-0.03) X10*3/uL Absolute Neuts (auto) 5.3 (2.0-8.3) X10*3/uL Absolute Nucleated RBC 0.000 (0.0-0.012) X10*3/uL Nucleated RBC % (auto) 0.0 (0.0-0.2) /100WBC Hold Blue Top SEE NOTE Sodium (135-145) mmol/L Potassium (3.3-5.1) mmol/L Chloride (96-108) mmol/L Carbon Dioxide (22-29) mmol/L Anion Gap (12-20) BUN (9-16) mg/dL Creatinine (0.5-1.4) mg/dL Estim Creat Clear Calc Estimated GFR Random Glucose (60-115) mg/dL Calcium (8.4-10.2) mg/dL Troponin I High Sens 3.6 (<3.5-17.0) ng/L B-Natriuretic Peptide 21 (<100) pg/mL 07/18/20 Range/Units 12:27 WBC (4.8-10.8) X10*3/uL RBC (4.20-5.50) X10*6/uL Hgb (12.0-16.0) g/dl Hct (37-47) % MCV (80-98) fL MCH (27.0-33.0) pg MCHC (31.0-35.0) g/dl RDW (11.0-16.0) % Plt Count (160-400) X10*3/uL MPV (9.4-12.3) fL Immature Gran % (Auto) (0.0-0.4) % Neut % (Auto) (45-73) % Lymph % (Auto) (20-40) % [place] % (Auto) (2-11) % Eos % (Auto) (0-4) % Baso % (Auto) (0-2) % Lymph # (Auto) (1.2-4.9) X10*3/uL [place] # (Auto) (0.1-1.2) X10*3/uL Eos # (Auto) (0.0-0.4) X10*3/uL Baso # (Auto) (0.0-0.2) X10*3/uL Abs Immat Gran (auto) (0.00-0.03) X10*3/uL Absolute Neuts (auto) (2.0-8.3) X10*3/uL Absolute Nucleated RBC (0.0-0.012) X10*3/uL Nucleated RBC % (auto) (0.0-0.2) /100WBC Hold Blue Top Sodium 141 (135-145) mmol/L Potassium 3.8 (3.3-5.1) mmol/L Chloride 105 (96-108) mmol/L Carbon Dioxide 27 (22-29) mmol/L Anion Gap 13 (12-20) BUN 15 (9-16) mg/dL Creatinine 0.69 (0.5-1.4) mg/dL Estim Creat Clear Calc 92.4 Estimated GFR > 60 Random Glucose 99 (60-115) mg/dL Calcium 9.4 D (8.4-10.2) mg/dL Troponin I High Sens (<3.5-17.0) ng/L B-Natriuretic Peptide (<100) pg/mL <Echo Mayorga PA-C - Last Filed: 07/18/20 16:18> Lab Results 07/18/20 07/18/20 07/18/20 Range/Units 10:16 10:16 10:16 WBC 7.8 (4.8-10.8) X10*3/uL RBC 5.20 (4.20-5.50) X10*6/uL Hgb 15.8 (12.0-16.0) g/dl Hct 45.6 (37-47) % MCV 87.7 (80-98) fL MCH 30.4 (27.0-33.0) pg MCHC 34.6 (31.0-35.0) g/dl RDW 12.9 (11.0-16.0) % Plt Count 218 (160-400) X10*3/uL MPV 9.5 (9.4-12.3) fL Immature Gran % (Auto) 0.1 (0.0-0.4) % Neut % (Auto) 67.6 (45-73) % Lymph % (Auto) 23.7 (20-40) % [place] % (Auto) 5.1 (2-11) % Eos % (Auto) 3.1 (0-4) % Baso % (Auto) 0.4 (0-2) % Lymph # (Auto) 1.9 (1.2-4.9) X10*3/uL [place] # (Auto) 0.4 (0.1-1.2) X10*3/uL Eos # (Auto) 0.2 (0.0-0.4) X10*3/uL Baso # (Auto) 0.0 (0.0-0.2) X10*3/uL Abs Immat Gran (auto) 0.01 (0.00-0.03) X10*3/uL Absolute Neuts (auto) 5.3 (2.0-8.3) X10*3/uL Absolute Nucleated RBC 0.000 (0.0-0.012) X10*3/uL Nucleated RBC % (auto) 0.0 (0.0-0.2) /100WBC Hold Blue Top SEE NOTE Sodium (135-145) mmol/L Potassium (3.3-5.1) mmol/L Chloride (96-108) mmol/L Carbon Dioxide (22-29) mmol/L Anion Gap (12-20) BUN (9-16) mg/dL Creatinine (0.5-1.4) mg/dL Estim Creat Clear Calc Estimated GFR Random Glucose (60-115) mg/dL Calcium (8.4-10.2) mg/dL Troponin I High Sens 3.6 (<3.5-17.0) ng/L B-Natriuretic Peptide 21 (<100) pg/mL 07/18/20 Range/Units 12:27 WBC (4.8-10.8) X10*3/uL RBC (4.20-5.50) X10*6/uL Hgb (12.0-16.0) g/dl Hct (37-47) % MCV (80-98) fL MCH (27.0-33.0) pg MCHC (31.0-35.0) g/dl RDW (11.0-16.0) % Plt Count (160-400) X10*3/uL MPV (9.4-12.3) fL Immature Gran % (Auto) (0.0-0.4) % Neut % (Auto) (45-73) % Lymph % (Auto) (20-40) % [place] % (Auto) (2-11) % Eos % (Auto) (0-4) % Baso % (Auto) (0-2) % Lymph # (Auto) (1.2-4.9) X10*3/uL [place] # (Auto) (0.1-1.2) X10*3/uL Eos # (Auto) (0.0-0.4) X10*3/uL Baso # (Auto) (0.0-0.2) X10*3/uL Abs Immat Gran (auto) (0.00-0.03) X10*3/uL Absolute Neuts (auto) (2.0-8.3) X10*3/uL Absolute Nucleated RBC (0.0-0.012) X10*3/uL Nucleated RBC % (auto) (0.0-0.2) /100WBC Hold Blue Top Sodium 141 (135-145) mmol/L Potassium 3.8 (3.3-5.1) mmol/L Chloride 105 (96-108) mmol/L Carbon Dioxide 27 (22-29) mmol/L Anion Gap 13 (12-20) BUN 15 (9-16) mg/dL Creatinine 0.69 (0.5-1.4) mg/dL Estim Creat Clear Calc 92.4 Estimated GFR > 60 Random Glucose 99 (60-115) mg/dL Calcium 9.4 D (8.4-10.2) mg/dL Troponin I High Sens (<3.5-17.0) ng/L B-Natriuretic Peptide (<100) pg/mL <Cody Kamara MD - Last Filed: 07/18/20 10:18> Discharge Plan Discharge Clinical Impression: Paroxysmal atrial fibrillation, Bradycardia <Echo Mayorga PA-C - Last Filed: 07/18/20 16:18> Patient Disposition: Home, Self-Care <Echo Mayorga PA-C - Last Filed: 07/18/20 16:18> Instructions: A-fib (Atrial Fibrillation) (ED) <Echo Mayorga PA-C - Last Filed: 07/18/20 16:18> Additional Instructions: As per Dr. Brown recommendation, he wants to cut your atenolol and half so you will be taking 25 mg twice daily. He is also adding in flexion 850 mg twice daily. If you have any difficulties taking these medications, please reach out to his office. Please return to the emergency department or call 911 if you experience chest pain, shortness of breath, dizziness. Dr. Brown is also going to set you up outpatient with a heart monitor so please call his office to arrange it. <Echo Mayorga PA-C - Last Filed: 07/18/20 16:18> Prescriptions: New flecainide 50 mg tablet 50 mg PO Q12H Qty: 60 RF: 0 No Action cetirizine 10 mg tablet 10 mg PO BID Qty: 180 RF: 2 atenolol 50 mg tablet 50 mg PO BID Qty: 180 RF: 0 iioldtdzab-vgfktqbfvnake-pnaz 50-325-40 mg tablet 1 tab PO Q12H PRN (Reason: headache) 30 Days Qty: 60 RF: 0 hydrochlorothiazide 25 mg tablet 25 mg PO DAILY 90 Days Qty: 90 RF: 2 lisinopril 2.5 mg tablet 2.5 mg PO DAILY 90 Days Qty: 90 RF: 3 omega-3 acid ethyl esters 1 gram capsule 1 cap PO DAILY 90 Days Qty: 90 RF: 3 rosuvastatin 20 mg tablet 20 mg PO DAILY 90 Days Qty: 90 RF: 3 venlafaxine 150 mg capsule,extended release 24hr 150 mg PO DAILY 90 Days Qty: 90 RF: 1 pregabalin 50 mg capsule 50 mg PO TID 90 Days Qty: 270 RF: 0 apixaban [Eliquis] 5 mg tablet 5 mg PO BID Qty: 180 RF: 3 ofloxacin 0.3 % drops 1 drp ophthalmic (eye) QID RF: 0 tobramycin 0.3 % drops 1 drp ophthalmic (eye) Q4H RF: 0 Prolensa 0.07 % drops 1 drp ophthalmic-Right DAILY RF: 0 Lotemax SM 0.38 % drops,gel 1 drp ophthalmic (eye) TID RF: 0 <Echo Mayorga PA-C - Last Filed: 07/18/20 16:18> Referrals: Iron Brown MD [Physician] - 2 days (new med flecinaide 50mg BID, needs holter monitor, also cut atenolol in half to 25mg BID) <Echo Mayorga PA-C - Last Filed: 07/18/20 16:18>
[2020-07-18 10:22] LABS: MANUAL DIFF FLAG NO
[2020-07-18 10:25] LABS: Basophils Percent Auto 0.4 % (0-2); Eosinophils Absolute Auto 0.2 X10*3/uL (0.0-0.4); Eosinophils Percent Auto 3.1 % (0-4); Hematocrit 45.6 % (37-47); Hemoglobin 15.8 g/dl (12.0-16.0); Imm Gran Abs Auto 0.01 X10*3/uL (0.00-0.03); Imm Gran Pct Auto 0.1 % (0.0-0.4); Lymphocytes Absolute Auto 1.9 X10*3/uL (1.2-4.9); Lymphocytes Percent Auto 23.7 % (20-40); Mean Corpuscular HGB Conc 34.6 g/dl (31.0-35.0); Mean Corpuscular Hemoglobin 30.4 pg (27.0-33.0); Mean Corpuscular Volume 87.7 fL (80-98); Mean Platelet Volume 9.5 fL (9.4-12.3); Monocytes Absolute Auto 0.4 X10*3/uL (0.1-1.2); Monocytes Percent Auto 5.1 % (2-11); Neutrophils Absolute Auto 5.3 X10*3/uL (2.0-8.3); Neutrophils Percent Auto 67.6 % (45-73); Platelet Count 218 X10*3/uL (160-400); Red Cell Distribution Width 12.9 % (11.0-16.0); White Blood Count 7.8 X10*3/uL (4.8-10.8)
[2020-07-18] MEDS: Aspirin 81 MG TAB.CHEW 324 MG PO (10:36)
[2020-07-18 10:39] VITALS: BP 128/66; PULSE 58; RESP 10; O2SAT 95
--- NOTE | 2020-07-18 12:10 | P.CONCA_ITS ---
History of Present Illness History of Present Illness Date of Service: 07/18/20 Consult reason: atrial fibrillation and other (Sinus bradycardia) Chief complaint: weakness Narrative: I was asked to see Felicity in cardiology consultation in the ED because of sinus bradycardia. 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 She said she has been having atrial fibrillation for the last 2 days multiple episodes lasting between 15 and 20 minutes. She has not taken flecainide as the symptoms are not been persistent. She had cataract surgery done yesterday. She has been taking her oral anticoagulant with Eliquis. No lightheadedness or loss of consciousness. No clear shortness of breath or chest discomfort. When she came to the ED she was in sinus rhythm and occasionally heart rate dipping into the low 40s. Blood pressures been stable. Patient very anxious about her overall medical situation. She was here last week again with similar symptoms of numbness in her head and both her arms. MRI done at that time was within normal limits. Review of Systems Constitutional: Constitutional: Reports no additional constitutional complaints Eyes: Eyes: Reports blurry vision Cardiovascular: Cardiovascular: Denies chest pain, Reports irregular heart rhythm, Denies lightheadedness, Denies Loss of Consciousness, Reports palpitations and Denies dyspnea Respiratory: Respiratory: Reports no additional respiratory complaints and Denies dyspnea Gastrointestinal: Gastrointestinal: Reports no additional gastrointestinal complaints Genitourinary: Genitourinary: Reports no additional female genitourinary complaints Musculoskeletal: Musculoskeletal: Reports no additional musculoskeletal complaints Neurologic: Reports system reviewed and no additional complaints, except as documented Psychiatric: Psychiatric: Reports no additional psychiatric complaints Endocrine: Endocrine: Reports no additional endocrine complaints and Reports palpitations Hematologic/Lymphatic: Hematologic/Lymphatic: Reports no additional hematologic/lymphatic complaints [facility] Past Medical History Medical History Depression Diabetes HTN (hypertension) Migraines Obstructive sleep apnea Osteoarthritis Osteopenia Paroxysmal atrial fibrillation Peripheral neuropathy Family History Family History Father No problems noted. Mother Diabetes mellitus Maternal Grandmother Diabetes mellitus Stroke Maternal Grandfather Lung cancer Smoker Surgical History Surgical History History of abdominal hernia History of lumpectomy of right breast History of partial colectomy History of total abdominal hysterectomy and bilateral salpingo-oophorectomy Social History Social History Alcohol intake: never Smoking Status: Never smoker Substance Use Type: Marijuana Advance Directives: Yes Advance Directives Information Provided: Yes Advance Directives on File: No Meds Allergies Allergy/AdvReac Type Severity Reaction Status Date / Time No Known Allergies Allergy Verified 07/15/20 16:18 [No Known Allergies*] Home Medications Medication Instructions Recorded Confirmed Last Taken Type flu vacc 2019-(63yr 0.5 ml IM DIRECTED 02/27/20 07/15/20 Unknown History up)-MF59C(PF) 60 mcg(15 mcgx4)/0.5 mL IM syringe Physical Exam Vital Signs: Vital Signs: Last Vital Signs Temp 98.2 F 07/18/20 08:12 Pulse 58 07/18/20 10:39 Resp 10 L 07/18/20 10:39 BP 128/66 07/18/20 10:39 Pulse Ox 95 07/18/20 10:39 Body Mass Index 35.6 Const: General: cooperative, comfortable, alert, awake and anxious Nutritional Appearance: obese Orientation/consciousness: patient oriented x3 Limitations: no limitations HENMT: Head: Yes normocephalic, Yes atraumatic and Yes other (Patch over the left eye due to recent surgery) Neck: Neck: Yes trachea midline, Yes supple and Yes no JVD Resp: Effort & Inspection: normal respiratory effort Auscultation: clear to auscultation bilaterally Cardio: Jugular venous distension: no JVD Palpation: normal PMI Rate: regular rate and bradycardic Rhythm: regular rhythm Heart sounds: S1 normal heart sound present and S2 normal heart sound present GI: Auscultation: normal bowel sounds Skin: General skin exam: no rashes or lesions noted Neuro: General: patient oriented x3 and no focal motor deficits Extrem: General: Yes no clubbing, cyanosis or edema Psych: Appearance: grossly normal Affect: Anxious affect present Results Labs and Meds Result diagrams: 07/18/20 10:16 07/18/20 10:16 Lab results: Laboratory Results - last 24 hr 07/18/20 07/18/20 10:16 10:16 WBC 7.8 RBC 5.20 Hgb 15.8 Hct 45.6 MCV 87.7 MCH 30.4 MCHC 34.6 RDW 12.9 Plt Count 218 MPV 9.5 Immature Gran % (Auto) 0.1 Neut % (Auto) 67.6 Lymph % (Auto) 23.7 [place] % (Auto) 5.1 Eos % (Auto) 3.1 Baso % (Auto) 0.4 Lymph # (Auto) 1.9 [place] # (Auto) 0.4 Eos # (Auto) 0.2 Baso # (Auto) 0.0 Abs Immat Gran (auto) 0.01 Absolute Neuts (auto) 5.3 Absolute Nucleated RBC 0.000 Nucleated RBC % (auto) 0.0 Hold Blue Top SEE NOTE rhythm monitor shows sinus bradycardia from low 40s to upper 50s Imaging Radiologist's impression: Impressions Chest X-Ray 07/18/20 09:41 IMPRESSION: Unremarkable examination. Assessment and Plan (1) Paroxysmal atrial fibrillation: Status: Acute Prior history of highly symptomatic paroxysmal atrial fibrillation. Cont inues to have repeated episode and more frequent episode in the last 2 days. Will start her on maintenance therapy flecainide 50 mg b.i.d. and pill in a pocket approach with flecainide if need be. Continue full oral anticoagulation with Eliquis. Will reduce atenolol to 25 mg b.i.d., see below. Follow-up Holter monitor in the next coming few days and in the office visit in 2 weeks (2) Sinus bradycardia: Status: Acute Patient presents with weird symptoms with no lightheadedness or loss of consciousness. Unclear if this is related to significant sinus bradycardia. Will reduce atenolol to 25 mg b.i.d.. Follow-up Holter monitor. If she persists with significant bradycardia and has symptoms may need pacing therapy. Continue rhythm control approach as above. Patient can be discharged home today and will follow up in the office in 2 weeks time. Thank you for allowing us to partake in her care
[2020-07-18 12:27] VITALS: BP 124/70; PULSE 49; RESP 12; O2SAT 97
[2020-07-18 12:43] VITALS: BP 118/55; PULSE 54
[2020-07-18] MEDS: Flecainide Acetate 50 MG TABLET PO (12:43)
[2020-07-18 13:01] LABS: Anion Gap 13 (12-20); Blood Urea Nitrogen 15 mg/dL (9-16); Calcium 9.4 mg/dL (8.4-10.2); Carbon Dioxide 27 mmol/L (22-29); Chloride 105 mmol/L (96-108); Creatinine Clr Calc Pharmacy 92.4; Estimated Glomerular Filt Rate > 60; Glucose Random 99 mg/dL (60-115); Potassium 3.8 mmol/L (3.3-5.1); Sodium 141 mmol/L (135-145)
[2020-07-18 13:10] LABS: B Type Natriuretic Peptide 21 pg/mL (<100); Troponin-I High Sensitivity 3.6 ng/L (<3.5-17.0)
[2020-07-18 14:09] VITALS: BP 110/50; PULSE 48; RESP 19; O2SAT 97
--- NOTE | 2020-07-20 07:21 | ECG_ITS ---
Test Reason : ARRHYTHMIA Blood Pressure : / mmHG Vent. Rate : 050 BPM Atrial Rate : 050 BPM P-R Int : 182 ms QRS Dur : 086 ms QT Int : 466 ms P-R-T Axes : 055 017 010 degrees QTc Int : 424 ms Sinus bradycardia Nonspecific ST and T wave abnormality Abnormal ECG When compared with ECG of 09-JUL-2020 11:05, Nonspecific T wave abnormality now evident in Anterior leads Referred By: Echo Mayogra Electronically Signed By:XAVIER ISBELL MD
== END 2020-07-18 16:41 | disposition home or self-care (01) ==
PROVIDERS: Physician Assistant; Emergency Provider Emergency Medicine; PCP Nurse Practitioner Family
DX: I48.0 Paroxysmal atrial fibrillation (principal); R00.1 Bradycardia, unspecified; R00.2 Palpitations; R06.02 Shortness of breath; F12.90 Cannabis use, unspecified, uncomplicated; Z79.899 Other long term (current) drug therapy
CPT/HCPCS: 36415; 71045; 80048; 83880; 84484; 85025; 93005; 99285

== ENCOUNTER → 2020-07-26 09:56 | Outpatient (REF) | payer MEDICARE, MEDICAID, SELFPAY ==
--- NOTE | 2020-07-26 11:20 | ECG_ITS ---
Hook-up date: 2020-07-26 10:17:00 Duration: 47:59:00 Test Indications: PAF Medications: [id number] QRS complexes 14 Ventricular ectopics which represent <1 % of total QRS comp. 128 Supraventricular ectopics which represent <1 % of total QRS comp. * Paced QRS complexs which represent % of total QRS comp. VENTRICULAR ECTOPY 14 Isolated 0 Bigeminal Cycles 0 Couplets 0 Runs 0 Beats in Runs * Beats LONGEST at * BPM at :: -- * Beats FASTEST at * BPM at :: -- SUPRAVENTRICULAR ECTOPY 48 Isolated 13 Couplets 9 Runs 54 Beats in Runs 9 Beats LONGEST at 145 BPM at 15:26:46 2020-07-26 7 Beats FASTEST at 159 BPM at 19:38:35 2020-07-26 HEART RATES 46 MIN at 05:02:03 2020-07-27 67 AVG 105 MAX at 09:51:01 2020-07-28 LONGEST RR 1.4320 secs at 05:22:04 2020-07-27 S-T LEVELS Channel 1 - 128 mm at 10:17:00 2020-07-26 - 128 mm at 10:17:00 2020-07-26 Channel 2 - 128 mm at 10:17:00 2020-07-26 - 128 mm at 10:17:00 2020-07-26 Channel 3 - 128 mm at 02:93:61 -- - 128 mm at 02:93:61 Underlying rhythm is sinus; Average ventricular rate 67/min; range 46-105/min; Rare PACs with some brief runs; Rare PVCs; No sustained atrial fibrillation; Patient did not return diary Referred By: Iron Brown Overread By: AYESHA BISHOP
== END ==
LOC: HO.CARD 09:56
PROVIDERS: PCP Nurse Practitioner Family; Referring Provider Nurse Practitioner Family; Visit Provider Internal Medicine Cardiovascular Disease
DX: I48.0 Paroxysmal atrial fibrillation (principal)
CPT/HCPCS: 93226

== ENCOUNTER 2020-11-26 08:39 | Outpatient (REF) | payer MEDICARE, MEDICAID, SELFPAY ==
[2020-11-26 11:36] LABS: MANUAL DIFF FLAG NO
[2020-11-26 11:51] LABS: Basophils Percent Auto 0.6 % (0-2); Eosinophils Absolute Auto 0.6 X10*3/uL (0.0-0.4); Eosinophils Percent Auto 8.8 % (0-4); Hematocrit 44.1 % (37-47); Hemoglobin 14.5 g/dl (12.0-16.0); Imm Gran Abs Auto 0.01 X10*3/uL (0.00-0.03); Imm Gran Pct Auto 0.1 % (0.0-0.4); Lymphocytes Percent Auto 30.1 % (20-40); Mean Corpuscular HGB Conc 32.9 g/dl (31.0-35.0); Mean Corpuscular Hemoglobin 29.4 pg (27.0-33.0); Mean Corpuscular Volume 89.5 fL (80-98); Mean Platelet Volume 10.4 fL (9.4-12.3); Monocytes Absolute Auto 0.4 X10*3/uL (0.1-1.2); Monocytes Percent Auto 5.7 % (2-11); Neutrophils Absolute Auto 3.7 X10*3/uL (2.0-8.3); Neutrophils Percent Auto 54.7 % (45-73); Platelet Count 199 X10*3/uL (160-400); Red Blood Count 4.93 X10*6/uL (4.20-5.50); White Blood Count 6.7 X10*3/uL (4.8-10.8)
[2020-11-26 12:25] LABS: Vitamin D 25-OH Total 47.6 ng/mL (>30)
[2020-11-26 12:29] LABS: Alanine Aminotransferase 13 U/L (0-31); Albumin Level 4.2 g/dL (3.5-5.0); Alkaline Phosphatase 61 U/L (39-117); Anion Gap 15 (12-20); Aspartate Amino Transferase 16 U/L (5-31); Bilirubin Total 0.5 mg/dL (0.0-1.0); Blood Urea Nitrogen 18 mg/dL (9-16); Calcium 9.9 mg/dL (8.4-10.2); Carbon Dioxide 30 mmol/L (22-29); Chloride 104 mmol/L (96-108); Cholesterol 166 mg/dL; Estimated Glomerular Filt Rate > 60; Glucose Fasting 105 mg/dL (60-99); HDL Cholesterol 56 mg/dL; LDL Cholesterol Calculated 83 mg/dl; Potassium 4.2 mmol/L (3.3-5.1); Sodium 145 mmol/L (135-145); Total Protein 6.9 g/dL (6.5-8.0); Triglycerides 139 mg/dL
[2020-11-26 12:49] LABS: Creatinine Urine 169.89 mg/dL; Microalbum/Creatinine Ratio Ur 4.7 ug/mg cr
[2020-11-26 13:34] LABS: Estimated Average Glucose 120 mg/dL; Hemoglobin A1c % 5.8 %
[2020-11-28 10:41] LABS: Calcium, Ionized 5.1 mg/dL (4.8-5.6)
[2020-12-01 06:31] LABS: PTHI 41 pg/mL (14-64)
== END 2020-11-26 08:40 | disposition home or self-care (01) ==
LOC: HO.HMGCLDS 08:39
PROVIDERS: PCP Nurse Practitioner Family; Visit Provider Nurse Practitioner Family
DX: E11.9 Type 2 diabetes mellitus without complications (principal); R51.9 Headache, unspecified; E83.52 Hypercalcemia
CPT/HCPCS: 36415; 80053; 80061; 82043; 82306; 82330; 83036; 83970; 85025

== ENCOUNTER → 2021-03-31 09:39 | Outpatient (BNVA) | payer MEDICARE, MEDICAID, SELFPAY | PROVIDERS: PCP Nurse Practitioner Family; Referring Provider Nurse Practitioner Family; Visit Provider Internal Medicine Cardiovascular Disease | DX: I48.0 Paroxysmal atrial fibrillation (principal); I10 Essential (primary) hypertension; R00.1 Bradycardia, unspecified | CPT/HCPCS: 93005; 99212 ==

== ENCOUNTER 2021-06-19 08:43 | Outpatient (REF) | payer MEDICARE, MEDICAID, SELFPAY ==
[2021-06-19 11:51] LABS: Appearance Urine HAZY; Color Urine YELLOW; Glucose Urine UA NEG (NEG); Leukocyte Esterase Urine 2+ (NEG); Nitrite Urine NEG (NEG); UACC Culture Trigger YES; Urine Blood 2+ (NEG); Urine Ketones NEG (NEG); Urine Protein NEG (NEG-TRACE)
[2021-06-19 12:14] LABS: Bacteria Urine 1+ /LPF; Squamous Epithelial Cell Urine 2+ /LPF
[2021-06-19 12:17] LABS: Alanine Aminotransferase 16 U/L (0-31); Albumin Level 4.2 g/dL (3.5-5.0); Alkaline Phosphatase 62 U/L (39-117); Anion Gap 14 (12-20); Aspartate Amino Transferase 16 U/L (5-31); Bilirubin Total 0.5 mg/dL (0.0-1.0); Blood Urea Nitrogen 20 mg/dL (9-16); Carbon Dioxide 32 mmol/L (22-29); Chloride 102 mmol/L (96-108); Cholesterol 168 mg/dL; Estimated Glomerular Filt Rate > 60; Glucose Fasting 116 mg/dL (60-99); HDL Cholesterol 57 mg/dL; LDL Cholesterol Calculated 83 mg/dl; Potassium 4.3 mmol/L (3.3-5.1); Sodium 144 mmol/L (135-145); Total Protein 7.2 g/dL (6.5-8.0); Triglycerides 140 mg/dL
[2021-06-19 12:31] LABS: Estimated Average Glucose 123 mg/dL; Hemoglobin A1c % 5.9 %
== END 2021-06-19 08:44 | disposition home or self-care (01) ==
LOC: HO.HMGCLDS 08:43
PROVIDERS: PCP Nurse Practitioner Family; Visit Provider Nurse Practitioner Family
DX: Z00.00 Encounter for general adult medical examination without abnormal findings (principal); E11.9 Type 2 diabetes mellitus without complications; Z87.440 Personal history of urinary (tract) infections; Z78.0 Asymptomatic menopausal state
CPT/HCPCS: 36415; 80053; 80061; 81001; 82306; 83036; 84443; 87086

== ENCOUNTER → 2021-09-29 09:51 | Outpatient (BNVA) | payer MEDICARE, MEDICAID, SELFPAY | PROVIDERS: PCP Nurse Practitioner Family; Visit Provider Internal Medicine Cardiovascular Disease | DX: R94.31 Abnormal electrocardiogram [ECG] [EKG] (principal) | CPT/HCPCS: 93005 ==

== ENCOUNTER 2022-01-08 09:02 | Outpatient (REF) | payer MEDICARE, SELFPAY ==
--- NOTE | ~2022-01-08 | MM_ITS ---
EXAMINATION: MM SCREENING DIGITAL BREAST TOMOSYNTHESIS, BILATERAL CLINICAL INFORMATION: Screening. Asymptomatic. Remote right excisional biopsy. The lifetime risk of breast cancer based on the Tyrer-Cuzick Model is 10%. COMPARISON: Mammography: 06/03/2020, 04/11/2018, 04/13/2016 TECHNIQUE: Digital breast tomosynthesis is performed in both the craniocaudal and mediolateral oblique views along with computer-aided detection (CAD). Synthesized 2D images are generated from the tomosynthesis. FINDINGS: There are scattered areas of fibroglandular density (ACR BI-RADS breast composition Category b). There is minor stable scarring upper outer quadrant right breast similar to prior studies. Neither breast shows interval mass or architectural abnormality. No abnormal calcifications. The skin contours are smooth. No significant changes. MM/MM tomosynthesis screening BI IMPRESSION: -No mammographic evidence of malignancy. -Stable minor scarring right breast consistent with prior history excision. ASSESSMENT: BI-RADS 2: Benign RECOMMENDATION: Routine annual mammography screening. This patient's information was entered into a reminder system with a target due date for their next mammogram.
== END 2022-01-08 09:03 | disposition home or self-care (01) ==
LOC: HO.MAMMO 09:02
PROVIDERS: PCP Nurse Practitioner Family; Visit Provider Nurse Practitioner Family
DX: Z12.31 Encounter for screening mammogram for malignant neoplasm of breast (principal)
CPT/HCPCS: 77063; 77067

== ENCOUNTER 2022-04-02 10:23 | Outpatient (REF) | payer MEDICARE, SELFPAY ==
[2022-04-02 14:03] LABS: MANUAL DIFF FLAG NO
[2022-04-02 14:14] LABS: Basophils Absolute Auto 0.1 X10*3/uL (0.0-0.2); Basophils Percent Auto 0.8 % (0-2); Eosinophils Absolute Auto 0.6 X10*3/uL (0.0-0.4); Hematocrit 44.1 % (37.0-47.0); Hemoglobin 14.9 g/dl (12.0-16.0); Imm Gran Abs Auto 0.02 X10*3/uL (0.00-0.03); Imm Gran Pct Auto 0.3 % (0.0-0.4); Lymphocytes Absolute Auto 2.1 X10*3/uL (1.2-4.9); Lymphocytes Percent Auto 29.3 % (20-40); Mean Corpuscular HGB Conc 33.8 g/dl (31.0-35.0); Mean Corpuscular Hemoglobin 30.1 pg (27.0-33.0); Mean Corpuscular Volume 89.1 fL (80.0-98.0); Mean Platelet Volume 10.2 fL (9.4-12.3); Monocytes Absolute Auto 0.4 X10*3/uL (0.1-1.2); Monocytes Percent Auto 5.8 % (2-11); Neutrophils Absolute Auto 3.9 x10*3/uL (2.0-8.3); Neutrophils Percent Auto 54.8 % (45-73); Platelet Count 208 X10*3/uL (160-400); Red Blood Count 4.95 X10*6/uL (4.20-5.50); Red Cell Distribution Width 13.8 % (11.0-16.0); White Blood Count 7.1 X10*3/uL (4.8-10.8)
[2022-04-02 14:27] LABS: Appearance Urine Clear; Color Urine Yellow; Glucose Urine UA Negative (Negative); Leukocyte Esterase Urine Small (1+) (Negative); Nitrite Urine Negative (Negative); PH 7.5 (5.0-9.0); UMIC TRIGGER UACC YES; Urine Blood Negative (Negative); Urine Ketones Negative (Negative); Urine Protein Negative (Neg-Trace)
[2022-04-02 14:28] LABS: Estimated Average Glucose 114 mg/dL; Hemoglobin A1c % 5.6 %
[2022-04-02 14:37] LABS: Bacteria Urine None Seen (None Seen); Hyaline Casts Urine 0-2 /LPF (0-2); RBC Urine 0-2 /HPF (0-2); UACC Culture Trigger YES; WBC Urine 0-5 /HPF (0-5)
[2022-04-02 14:45] LABS: Alanine Aminotransferase 10 U/L (0-31); Albumin Level 4.2 g/dL (3.5-5.0); Alkaline Phosphatase 68 U/L (39-117); Anion Gap 15 (12-20); Aspartate Amino Transferase 15 U/L (5-31); Bilirubin Total 0.5 mg/dL (0.0-1.0); Blood Urea Nitrogen 19 mg/dL (9-16); Calcium 9.7 mg/dL (8.4-10.2); Carbon Dioxide 29 mmol/L (22-29); Chloride 102 mmol/L (96-108); Cholesterol 152 mg/dL; Estimated Glomerular Filt Rate > 60; Glucose Fasting 95 mg/dL (60-99); Glucose Random 95 mg/dL (60-115); HDL Cholesterol 57 mg/dL; LDL Cholesterol Calculated 76 mg/dl; Magnesium 1.7 mg/dL (1.6-2.6); Sodium 142 mmol/L (135-145); Total Protein 7.1 g/dL (6.5-8.0); Triglycerides 96 mg/dL
[2022-04-02 14:47] LABS: TSH reflex Free T4 1.23 uIU/mL (0.32-4.0)
[2022-04-02 14:52] LABS: Microalbumin Urine < 5.0 mg/L
== END 2022-04-02 10:24 | disposition home or self-care (01) ==
LOC: HO.HMGCLDS 10:23
PROVIDERS: PCP Nurse Practitioner Family; Referring Provider Nurse Practitioner Family; Visit Provider Internal Medicine Cardiovascular Disease
DX: I48.0 Paroxysmal atrial fibrillation (principal); I11.0 Hypertensive heart disease with heart failure; I50.30 Unspecified diastolic (congestive) heart failure; E11.9 Type 2 diabetes mellitus without complications; Z79.899 Other long term (current) drug therapy
CPT/HCPCS: 36415; 80048; 80053; 80061; 81001; 82043; 83036; 83735; 84443; 85025; 85027; 87086; 93005; 99212

== ENCOUNTER → 2022-10-01 09:18 | Outpatient (BNVA) | payer MEDICARE, SELFPAY | PROVIDERS: Visit Provider Internal Medicine Cardiovascular Disease ==

== ENCOUNTER 2022-10-27 08:29 | Outpatient (AMB) | payer MEDICARE, SELFPAY ==
--- NOTE | 2022-10-27 08:32 | MHC.PC.OV ---
Vital Signs 10/27/22 08:34 Height 5 ft 5 in Weight 217 lb 8 oz BMI 36.2 BP 118/76 Blood Pressure Location Rt brachial Position Sitting Pulse 51 Pulse Source Pulse Oximeter Pulse Oximetry (%) 97 Oxygen Delivery Method Room Air Intake Visit Reasons: 4m follow up headaches Allergies No Known Allergies [No Known Allergies*] Allergy (Verified 10/27/22 08:37) Medication List - Last Reconciled 10/27/22 by GARRETT Abad apixaban (Eliquis) 5 mg PO BID atenolol 25 mg PO BID tekgvphvti-ebmirxmmbiijy-iwic 50-325-40 mg 1 tab PO Q12H PRN 30 days cetirizine 10 mg PO BID flecainide 50 mg PO Q12H 90 days hydrochlorothiazide 25 mg PO DAILY 90 days lisinopril 2.5 mg PO DAILY 90 days omega-3 acid ethyl esters 1 cap PO DAILY 90 days pregabalin 50 mg PO TID 90 days rosuvastatin 20 mg PO DAILY 90 days sumatriptan succinate take 1 tab at onset of headache; if no relief may repeat 1 tab after at least 2 hrs; max = 4 tabs/24 hr PO venlafaxine ER 150 mg PO DAILY 90 days Tobacco use date assessed: 10/27/22 Fall risk assessment: No Falls in past year Last assessed Fall Risk: 10/27/22 Dental Screening Dental Screen Date: 10/27/22 Did you have a dental visit in the last 12 months?: No Did you have a dental problem in the last 6 months where you did not have access to dental care?: No Was dental information given to patient?: No (no dental insurance ) HPI 4m follow up headaches HPI Details Pt is a diabetic, on an SHAUN and a statin. Last A1c was 5.6, due for repeat. Microalbumin is up to date. Denies polyuria, polydipsia, and neuropathy. Pt denies any signs and symptoms of hypoglycemia and does know how to correct it. Labs have already been ordered, encouraged pt to have these drawn. Migraines: Pt reports having migraines every 1-1.5 months. She reports that her medications help. Pt does not want to start a preventative at this time. [facility] Medical History Depression Diabetes HTN (hypertension) Migraines Obstructive sleep apnea Osteoarthritis Osteopenia Paroxysmal atrial fibrillation Peripheral neuropathy Surgical History History of abdominal hernia History of lumpectomy of right breast History of partial colectomy History of total abdominal hysterectomy and bilateral salpingo-oophorectomy Family History Father No problems noted. Mother Diabetes mellitus Maternal Grandmother Diabetes mellitus Stroke Maternal Grandfather Lung cancer Smoker Social History Housing: House Alcohol intake: never Patient Tobacco Use Status: Former Tobacco user Tobacco use type: Cigarette Years Smoked: 11/12/2011 e-Cigarette/Vaping Use: Never Used Substance Use Type: Marijuana service: No Current occupational status: retired and disabled Current occupational exposures/hazards: No Cognitive needs: No Hearing needs: No Vision needs: No Questionnaire Thrive Questionnaire Date Thrive assessed: 06/29/22 CARMINA-7 AMB Questionnaire CARMINA-7 Date CARMINA - 7 assessed: 06/29/22 Source: Developed by Drs. Vaughn Moses, Kellie Mason, Alfonso López and colleagues, with an educational sarwat from [employer]. Review of Systems Const Reports as per HPI Physical exam (Primary Care) Vital Signs: Last Vital Signs Pulse 51 10/27/22 08:34 BP 118/76 10/27/22 08:34 Pulse Ox 97 10/27/22 08:34 Oxygen Delivery Method Room Air 10/27/22 08:34 BMI result Body Mass Index 36.2 Tobacco/Smoking Status: Tobacco use Status Tobacco use date assessed 10/27/22 10/27/22 08:40 Patient Tobacco Use Status Former Tobacco user 10/27/22 08:33 Tobacco use type Cigarette 10/27/22 08:33 e-Cigarette/Vaping Use Never Used 10/27/22 08:33 Thrive Assessment: Date of Thrive Assessment Date Thrive assessed 06/29/22 10/27/22 08:33 Const General: cooperative Nutritional Appearance: obese Orientation/consciousness: patient oriented x3 Limitations: ambulation with cane Resp Effort & Inspection: normal respiratory effort Auscultation: clear to auscultation bilaterally Cardio Rate: regular rate Rhythm: regular rhythm Heart sounds: S1 normal heart sound present, S2 normal heart sound present and Murmur heart sound present systolic Neuro General: patient oriented x3 Extrem Other: bilat feet: + sensation with use of monofilament, feet intact without lesions Psych Appearance: grossly normal Mental Status: mental status grossly normal Speech and movement: Normal speech and movement present Affect: normal affect Attitude: cooperative Thought process: Normal thought process present Thought content: Normal thought content present Insight: Good insight present (Psych) Judgement: Good judgement present (Psych) Assessment and Plan Assessment & Plan (1) Diabetes: Code(s): E11.9 - Type 2 diabetes mellitus without complications Plan The patient agreed to the use of a infertility medical assistant for this encounter. Scribed for GARRETT Soni by Ashly King infertility medical assistant, on 10/27/2022 at 08:50 EST. Coding Level of Care Code Est Pt Level 3 (81257) Diagnoses Diabetes E11.9
[2022-10-27 08:34] VITALS: BP 118/76; PULSE 51; O2SAT 97; BMI 36.2
== END 2022-10-27 10:58 | disposition home or self-care (01) ==
PROVIDERS: PCP Nurse Practitioner Family; Visit Provider Nurse Practitioner Family
DX: E11.9 Type 2 diabetes mellitus without complications (principal)
CPT/HCPCS: 99213

== ENCOUNTER 2023-01-06 13:36 | Outpatient (AMB) | payer MEDICARE, SELFPAY ==
--- NOTE | 2023-01-06 13:42 | AM.OFFWIN_ITS ---
Intake Vital Signs 01/06/23 13:43 Height 5 ft 5 in BP 140/80 H Blood Pressure Location Lt brachial Position Sitting Pulse 94 Pulse Source Pulse Oximeter Temp 98.2 F Temp Source Temporal Artery Scan Pulse Oximetry (%) 96 Oxygen Delivery Method Room Air Intake Visit Reasons: EP, Tic on right lower leg Intake Note: pt is here for c/o tic on lower right leg Patient Tobacco Use Status: Former Tobacco user Allergies No Known Allergies [No Known Allergies*] Allergy (Verified 01/06/23 13:44) Do you need a note to return to daycare/school/sports/work: Yes HPI EP, Tic on right lower leg HPI Details 67-year-old female patient presents toda y following removing a tick from her right lower leg two days ago. She reports noticing tick that had likely been there for two days following walking her dogs. A friend of hers removed the tick, and she believes it was removed in its entirety, however she just wants to be sure. Following removal, she did develop a bull's eye type rash surrounding the bite site. This has since resolved. She denies any ongoing pain. She denies any rash, fever or chills. [facility] Medical History Obstructive sleep apnea HTN (hypertension) Paroxysmal atrial fibrillation Depression Migraines Peripheral neuropathy Osteopenia Osteoarthritis Diabetes Surgical History History of lumpectomy of right breast History of total abdominal hysterectomy and bilateral salpingo-oophorectomy History of abdominal hernia History of partial colectomy Family History Father No problems noted. Mother Diabetes mellitus Maternal Grandmother Diabetes mellitus Stroke Maternal Grandfather Lung cancer Smoker Social History Housing: House Alcohol intake: never Patient Tobacco Use Status: Former Tobacco user Tobacco use type: Cigarette Years Smoked: 11/12/2011 e-Cigarette/Vaping Use: Never Used Substance Use Type: Marijuana service: No Current occupational status: retired and disabled Current occupational exposures/hazards: No Cognitive needs: No Hearing needs: No Vision needs: No Review of Systems Const All systems reviewed & are unremarkable except as noted in HPI and below Physical Exam Vital Signs: Last Vital Signs Temp 98.2 F 01/06/23 13:43 Pulse 94 01/06/23 13:43 BP 140/80 H 01/06/23 13:43 Pulse Ox 96 01/06/23 13:43 Oxygen Delivery Method Room Air 01/06/23 13:43 Const General: cooperative, healthy appearing and no acute distress Neck Neck: Yes no lymphadenopathy Resp Effort & Inspection: normal respiratory effort Skin Other: right lower medial aspect of leg with scabbed area. No remaining parts of tick identified on exam. Slight erythema surrounding bite site. No warmth or rash noted. Extrem General: Yes capillary refill normal Psych Appearance: grossly normal Mental Status: mental status grossly normal Speech and movement: Normal speech and movement present Assessment & Plan Assessment & Plan (1) Tick bite: Code(s): W57.XXXA - Bitten or stung by nonvenomous insect and other nonvenomous art hropods, initial encounter Qualifiers: Encounter type: initial encounter Site of tick bite: lower leg Laterality: right Qualified Code(s): S80.861A - Insect bite (nonvenomous), right lower leg, initial encounter; W57.XXXA - Bitten or stung by nonvenomous insect and other nonvenomous arthropods, initial encounter Plan: Tick on right lower leg was removed about 2 days ago. I will prescribe patient prophylactic dose of doxycycline, and have ordered Lyme labs that can be done after two weeks. Patient states she has labs ordered by her PCP which she is planning to have done at the end of January, and she can have this drawn at the same time. At this time I have just advised that she keep the area clean and dry, and return to the clinic if she develops any increasing pain, redness, rash, or any concerning symptoms. She verbalizes understanding and agrees to plan. Orders: Orders Lyme IgG/IgM w/reflex to WB 01/25/23 W57.XXXA - Bitten or stung by nonvenomous insect and other nonvenomous arthropods, initial encounter Medications: New doxycycline hyclate 200 mg (2 x 100 mg) PO ONCE 2 tabs 0RF W57.XXXA - Bitten or stung by nonvenomous insect and other nonvenomous arthropods, initial encounter Coding Level of Care Code Est Pt Level 3 (14534) Diagnoses Tick bite of right lower leg, initial encounter S80.861A; W57.XXXA Encounter type: initial encounter Site of tick bite: lower leg Laterality: right
[2023-01-06 13:43] VITALS: BP 140/80; PULSE 94; TEMP 36.8; O2SAT 96
== END 2023-01-06 14:24 | disposition home or self-care (01) ==
PROVIDERS: PCP Nurse Practitioner Family; Visit Provider Nurse Practitioner Family
DX: S80.861A Insect bite (nonvenomous), right lower leg, initial encounter (principal); W57.XXXA Bitten or stung by nonvenomous insect and other nonvenomous arthropods, initial encounter
CPT/HCPCS: 99213

== ENCOUNTER 2023-01-14 08:57 | Outpatient (REF) | payer MEDICARE, SELFPAY ==
--- NOTE | ~2023-01-14 | MM_ITS ---
EXAMINATION: MM SCREENING DIGITAL BREAST TOMOSYNTHESIS, BILATERAL CLINICAL INFORMATION: Screening. Asymptomatic. COMPARISON: Mammography: This study is compared with prior exams dating back to 2017. TECHNIQUE: Digital breast tomosynthesis is performed in both the craniocaudal and mediolateral oblique views along with computer-aided detection (CAD). Synthesized 2D images are generated from the tomosynthesis. FINDINGS: The breasts are almost entirely fatty (ACR BI-RADS breast composition Category a). There are no significant masses, abnormal calcifications, or other abnormalities. There is faintly evident architectural changes in the lateral aspect of the right breast from prior benign excisional biopsy. MM/MM tomosynthesis screening BI IMPRESSION: No mammographic evidence of malignancy. ASSESSMENT: BI-RADS BI-RADS 2 - Benign Findings RECOMMENDATION: Routine annual mammography screening. 1 year F/U This examination should not preclude the clinical evaluation of a suspicious palpable abnormality. This patient's information was entered into a reminder system with a target due date for their next mammogram.
== END 2023-01-14 08:58 | disposition home or self-care (01) ==
LOC: HO.MAMMO 08:57
PROVIDERS: PCP Nurse Practitioner Family; Visit Provider Nurse Practitioner Family
DX: Z12.31 Encounter for screening mammogram for malignant neoplasm of breast (principal)
CPT/HCPCS: 77063; 77067

== ENCOUNTER → 2023-01-14 09:00 | Outpatient (BNV) | payer MEDICARE, SELFPAY | PROVIDERS: PCP Nurse Practitioner Family; Visit Provider Radiology Diagnostic Radiology | DX: Z12.31 Encounter for screening mammogram for malignant neoplasm of breast (principal) | CPT/HCPCS: 77063; 77067 ==

== ENCOUNTER 2023-03-03 10:11 | Outpatient (AMB) | payer MEDICARE, SELFPAY ==
--- NOTE | 2023-03-03 10:35 | MHC.PC.OV ---
Vital Signs 03/03/23 10:39 Height 5 ft 5 in Weight 213 lb BMI 35.4 BP 120/78 Blood Pressure Location Rt brachial Position Sitting Pulse 62 Pulse Source Pulse Oximeter Pulse Oximetry (%) 98 Oxygen Delivery Method Room Air Intake Visit Reasons: Annual Physical Intake Note: Patient here for physical exam and would like to address her migraines that when they come they last about 4 days. Allergies No Known Allergies [No Known Allergies*] Allergy (Verified 03/03/23 11:07) Tobacco use date assessed: 10/27/22 Fall risk assessment: No Falls in past year Last assessed Fall Risk: 03/03/23 Dental Screening Dental Screen Date: 03/03/23 Did you have a dental visit in the last 12 months?: No Did you have a dental problem in the last 6 months where you did not have access to dental care?: No Was dental information given to patient?: Patient declined HPI Annual Physical HPI Details Pt is here for a PE. Will order labs. Colon screen is up to date. Mammo is up to date. 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 Pt is a diabetic, on an SHAUN and a statin. A1C in office today is 5.9. Microalbumin is up to date. Denies polyuria, polydipsia, and neuropathy. Pt denies any signs and symptoms of hypoglycemia and does know how to correct it. [facility] Medical History Obstructive sleep apnea HTN (hypertension) Paroxysmal atrial fibrillation Depression Migraines Peripheral neuropathy Osteopenia Osteoarthritis Diabetes Surgical History History of lumpectomy of right breast History of total abdominal hysterectomy and bilateral salpingo-oophorectomy History of abdominal hernia History of partial colectomy Family History Father No problems noted. Mother Diabetes mellitus Maternal Grandmother Diabetes mellitus Stroke Maternal Grandfather Lung cancer Smoker Social History Housing: House Alcohol intake: never Patient Tobacco Use Status: Former Tobacco user Tobacco use type: Cigarette Years Smoked: 11/12/2011 e-Cigarette/Vaping Use: Never Used Substance Use Type: Marijuana service: No Current occupational status: retired and disabled Current occupational exposures/hazards: No Cognitive needs: No Hearing needs: No Vision needs: No Questionnaire Thrive Questionnaire Date Thrive assessed: 06/29/22 AUDIT C Alcohol Use Questionnaire (AUDIT-C) 1. How often do you have a drink containing alcohol?: Never 3. How often do you have six or more drinks on one occasion?: Never Total Score: 0 Score Reviewed/Action Taken: No CARMINA-7 AMB Questionnaire CARMINA-7 Date CARMINA - 7 assessed: 06/29/22 Source: Developed by Drs. Vaughn Moses, Kellie Mason, Alfonso López and colleagues, with an educational sarwat from [employer]. Review of Systems Const Denies chills and Denies fever(s) Eyes Denies blurry vision ENT Denies vertigo, Denies dizziness and Denies sore throat Card Denies chest pain at rest, Denies chest pain with activity, Denies diaphoresis, Denies dyspnea and Denies dyspnea on exertion Resp Denies cough, Denies dyspnea, Denies dyspnea on exertion and Denies wheezing GI Denies abdominal pain, Denies melena, Denies hematochezia, Denies constipation, Denies diarrhea and Denies loose stools Denies hematuria Musc Denies numbness and Denies tingling Skin/Breast Denies lesions Neuro Denies vertigo, Denies dizziness, Denies numbness and Denies tingling Psych Denies anxiety, Denies depression, Denies homicidal ideation, Denies suicidal ideation and Denies other (substance abuse) Aller/Immun Denies wheezing Physical exam (Primary Care) Vital Signs: Last Vital Signs Pulse 62 03/03/23 10:39 BP 120/78 03/03/23 10:39 Pulse Ox 98 03/03/23 10:39 Oxygen Delivery Method Room Air 03/03/23 10:39 BMI result Body Mass Index 35.4 Tobacco/Smoking Status: Tobacco use Status Tobacco use date assessed 10/27/22 03/03/23 10:36 Patient Tobacco Use Status Former Tobacco user 03/03/23 10:36 Tobacco use type Cigarette 03/03/23 10:36 e-Cigarette/Vaping Use Never Used 03/03/23 10:36 Thrive Assessment: Date of Thrive Assessment Date Thrive assessed 06/29/22 03/03/23 10:36 Const General: cooperative Nutritional Appearance: obese Orientation/consciousness: patient oriented x3 HENMT Head: Yes normal to inspection, Yes normocephalic and Yes atraumatic Ears: TM's normal bilaterally Eyes General: appearance normal, both eyes and all related structures Alignment and Position: alignment normal and position normal Neck Neck: Yes normal visual inspection and Yes no lymphadenopathy Thyroid: Thyroid normal Resp Effort & Inspection: normal respiratory effort Auscultation: clear to auscultation bilaterally Cardio Rate: regular rate Rhythm: regular rhythm Heart sounds: S1 normal heart sound present, S2 normal heart sound present and Murmur heart sound present systolic GI Palpation (GI): Soft to palpation and nontender Auscultation: normal bowel sounds Skin Rashes: no rashes Neuro General: patient oriented x3, moves all extremities, no focal motor deficits and deep tendon reflexes 2+ bilaterally Romberg Test: Negative Extrem Other: bilat feet:+ sensation with use of monofilament Right lower extremity: no edema Left lower extremity: no edema Psych Appearance: grossly normal Mental Status: mental status grossly normal Speech and movement: Normal speech and movement present Affect: normal affect Attitude: cooperative Thought process: Normal thought process present Thought content: Normal thought content present Insight: Good insight present (Psych) Judgement: Good judgement present (Psych) Results AMB Hemoglobin A1c AMB Hemoglobin A1c 5.9 % Last Edit by AZAR Wang on 03/03/23 11:09 Results Reviewed Results Reviewed: Laboratory Last Values Hgb A1c (Clinic) 5.9 % (4.0-6.0) 03/03/23 11:08 Assessment and Plan Assessment & Plan (1) Diabetes: Code(s): E11.9 - Type 2 diabetes mellitus without complications Plan: Labs ordered (2) Physical exam: Code(s): Z00.00 - Encounter for general adult medical examination without abnormal findings Plan The patient agreed to the use of a medical investigator for this encounter. Scribed for GARRETT Soni by Ashly King medical investigator, on 03/03/2023 at 11:00 EST. Orders: Orders Complete Blood Count Auto Diff Today E11.9 - Type 2 diabetes mellitus without complications Comprehensive [place]. Panel Fast Today E11.9 - Type 2 diabetes mellitus without complications TSH reflex Free T4 Today E11.9 - Type 2 diabetes mellitus without complications Microalbumin, Random (w Creat) Today E11.9 - Type 2 diabetes mellitus without complications AMB Hemoglobin A1c Today E11.9 - Type 2 diabetes mellitus without complications UA CC w/rflx Micro + Cult Today E11.9 - Type 2 diabetes mellitus without complications Lipid Panel Today E11.9 - Type 2 diabetes mellitus without complications Coding Level of Care Code Est Pt Prev Care >65y(45185) Diagnoses Diabetes E11.9 Physical exam Z00.00
[2023-03-03 10:39] VITALS: BP 120/78; PULSE 62; O2SAT 98; BMI 35.4
== END 2023-03-03 11:19 | disposition home or self-care (01) ==
PROVIDERS: PCP Nurse Practitioner Family; Visit Provider Nurse Practitioner Family
DX: E11.9 Type 2 diabetes mellitus without complications (principal); Z00.00 Encounter for general adult medical examination without abnormal findings
CPT/HCPCS: 83036; 99397

== ENCOUNTER 2023-04-05 10:19 | Outpatient (AMB) | payer MEDICARE, SELFPAY ==
[2023-04-05 10:28] VITALS: BP 128/80; PULSE 58; BMI 35.6
--- NOTE | 2023-04-05 10:28 | A.OFFVIS_ITS ---
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 Required: No Play Reader: Play Reader Present Accompanied by: Friend Allergies No Known Allergies [No Known Allergies*] Allergy (Verified 03/03/23 11:07) Medication List - Last Reconciled 04/05/23 by Iron Brown MD apixaban (Eliquis) 5 mg PO BID atenolol 25 mg PO BID cetirizine 10 mg PO BID flecainide 50 mg PO Q12H 90 days hydrochlorothiazide 25 mg PO DAILY 90 days lisinopril 2.5 mg PO DAILY 90 days omega-3 acid ethyl esters 1 cap PO DAILY 90 days pregabalin 50 mg PO TID 90 days rosuvastatin 20 mg PO DAILY 90 days venlafaxine ER 150 mg PO DAILY 90 days HPI HPI Comments History of Present Illness Details Felicity comes for follow-up. She says she has been getting increasing symptoms and more frequent symptoms of atrial fibrillation. She had 1 episode this morning and felt really poorly after that. He had sudden-onset palpitations that lasted for about 8 minutes. She takes all her medications as prescribed. Denies any other new symptoms. Denies any exertional chest pain, shortness of breath. No heart failure symptoms. No lightheadedness, syncope. No bleeding issues or neurologic events. [facility] Medical History Obstructive sleep apnea HTN (hypertension) Paroxysmal atrial fibrillation Depression Migraines Peripheral neuropathy Osteopenia Osteoarthritis Diabetes Surgical History History of lumpectomy of right breast History of total abdominal hysterectomy and bilateral salpingo-oophorectomy History of abdominal hernia History of partial colectomy Family History Father No problems noted. Mother Diabetes mellitus Maternal Grandmother Diabetes mellitus Stroke Maternal Grandfather Lung cancer Smoker Social History Housing: House Alcohol intake: never Patient Tobacco Use Status: Former Tobacco user Tobacco use type: Cigarette Years Smoked: 11/12/2011 e-Cigarette/Vaping Use: Never Used Substance Use Type: Marijuana service: No Current occupational status: retired and disabled Current occupational exposures/hazards: No Cognitive needs: No Hearing needs: No Vision needs: No Review of Systems Const Denies chills, Denies fatigue, Denies fever(s), Denies frequent falls, Denies weakness, Denies weight gain and Denies weight loss ENT Denies dizziness Card Denies chest pain, Denies leg edema, Denies lightheadedness, Denies palpitations, Denies dyspnea, Denies dyspnea on exertion, Denies orthopnea and Denies other (loss of consciousness) Resp Denies cough, Denies dyspnea and Denies dyspnea on exertion GI Denies hematochezia and Denies change in stool character Musc Denies abnormal gait, Denies muscle weakness, Denies numbness, Denies radiating pain into limb and Denies tingling Neuro Denies abnormal gait, Denies dizziness, Denies frequent falls, Denies numbness, Denies tingling and Denies weakness Endo Denies fatigue and Denies palpitations Physical Exam Vital Signs: Last Vital Signs Pulse 58 04/05/23 10:28 BP 128/80 04/05/23 10:28 BMI result Body Mass Index 35.6 Last Vital Signs Temp 98.2 F 07/18/20 08:12 Pulse 58 07/18/20 10:39 Resp 10 L 07/18/20 10:39 BP 128/66 07/18/20 10:39 Pulse Ox 95 07/18/20 10:39 Body Mass Index 35.6 Const General: cooperative, comfortable, no acute distress, alert and awake Nutritional Appearance: obese Orientation/consciousness: patient oriented x3 Limitations: ambulation with cane Neck Neck: Yes trachea midline, Yes supple and Yes no JVD Resp Effort & Inspection: normal respiratory effort Auscultation: clear to auscultation bilaterally Cardio Jugular venous distension: no JVD Palpation: normal PMI Rate: regular rate and bradycardic Rhythm: regular rhythm Heart sounds: S1 normal heart sound present, S2 normal heart sound present, no click, no gallops and Murmur heart sound present systolic early, decrescendo and crescendo GI Auscultation: normal bowel sounds Skin General skin exam: no rashes or lesions noted Neuro General: patient oriented x3 and no focal motor deficits Extrem General: Yes no clubbing, cyanosis or edema Office Procedures EKG Details: EKG shows sinus bradycardia at 58 beats per minute otherwise normal EKG [id number], Complete Assessment & Plan Assessment & Plan (1) Paroxysmal atrial fibrillation: Code(s): I48.0 - Paroxysmal atrial fibrillation Plan: Patient with highly symptomatic paroxysmal atrial fibrillation with increasing burden as well as frequency. She is highly symptomatic with this. Will increase flecainide to 100 mg b.i.d.. Continue concomitant atenolol therapy to reduce AV conduction. EKG in 1 week and EKG in 6 months. Echocardiogram in 1 year's time. Continue participate in aggressive risk factor modification with aggressive blood pressure control, weight reduction as well as therapy for obstructive sleep apnea. Avoidance of stimulants was discussed. (2) HTN (hypertension): Code(s): I10 - Essential (primary) hypertension Plan: Hypertension which is currently well optimized. Advised to continue current therapy. Avoidance of good blood pressure control was discussed. Goal blood pressure less than 130/84. Low-salt diet was discussed. Advised to participate in weight reduction therapy and CPAP therapy. Continue aggressive management diabetes goal hemoglobin A1c less than 7%. Will follow up in the clinic in 6 months for EKG in 1 year with me. Thank you for allowing me to partake in the care Orders: Orders CA echo transthoracic complete 50 Weeks I48.0 - Paroxysmal atrial fibrillation Basic Metabolic Panel Today I48.0 - Paroxysmal atrial fibrillation Complete Blood Count no Diff Today I48.0 - Paroxysmal atrial fibrillation Medications: New flecainide 100 mg PO Q12H 60 tabs 5RF Discontinued flecainide Discontinued Reason: Doctor's Order 50 mg PO Q12H 90 days 180 tabs 3RF Coding Level of Care Code Est Pt Level 4 (47524) Diagnoses Paroxysmal atrial fibrillation I48.0 HTN (hypertension) I10 CPT Codes EKG - CPT: 88901-[id number], Complete ([id number])
== END 2023-04-05 10:59 | disposition home or self-care (01) ==
PROVIDERS: Visit Provider Internal Medicine Cardiovascular Disease
DX: I48.0 Paroxysmal atrial fibrillation (principal); I10 Essential (primary) hypertension
CPT/HCPCS: 93010; 99214

== ENCOUNTER → 2023-04-05 10:19 | Outpatient (BNVA) | payer MEDICARE, SELFPAY | PROVIDERS: Visit Provider Internal Medicine Cardiovascular Disease | DX: I48.0 Paroxysmal atrial fibrillation (principal); I10 Essential (primary) hypertension | CPT/HCPCS: 93005; 99212 ==

== ENCOUNTER 2023-04-05 11:19 | Outpatient (REF) | payer MEDICARE, SELFPAY ==
[2023-04-05 13:35] LABS: MANUAL DIFF FLAG NO
[2023-04-05 13:47] LABS: Basophils Percent Auto 0.4 % (0-2); Eosinophils Absolute Auto 0.2 X10*3/uL (0.0-0.4); Eosinophils Percent Auto 2.3 % (0-4); Hematocrit 43.9 % (37.0-47.0); Hemoglobin 14.9 g/dl (12.0-16.0); Imm Gran Abs Auto 0.01 X10*3/uL (0.00-0.03); Imm Gran Pct Auto 0.1 % (0.0-0.4); Lymphocytes Absolute Auto 2.1 X10*3/uL (1.2-4.9); Lymphocytes Percent Auto 29.7 % (20-40); Mean Corpuscular HGB Conc 33.9 g/dl (31.0-35.0); Mean Corpuscular Hemoglobin 30.3 pg (27.0-33.0); Mean Corpuscular Volume 89.2 fL (80.0-98.0); Mean Platelet Volume 10.1 fL (9.4-12.3); Monocytes Absolute Auto 0.4 X10*3/uL (0.1-1.2); Monocytes Percent Auto 6.3 % (2-11); Neutrophils Absolute Auto 4.3 x10*3/uL (2.0-8.3); Neutrophils Percent Auto 61.2 % (45-73); Platelet Count 201 X10*3/uL (160-400); Red Blood Count 4.92 X10*6/uL (4.20-5.50); Red Cell Distribution Width 13.5 % (11.0-16.0)
[2023-04-05 13:48] LABS: Appearance Urine Clear; Color Urine Yellow; Glucose Urine UA Negative (Negative); Leukocyte Esterase Urine Moderate (2+) (Negative); Nitrite Urine Negative (Negative); PH 6.5 (5.0-9.0); Specific Gravity - Urine 1.025 (1.005-1.025); UMIC TRIGGER UACC YES; Urine Blood Negative (Negative); Urine Ketones Negative (Negative); Urine Protein Negative (Neg-Trace)
[2023-04-05 14:00] LABS: Bacteria Urine None Seen (None Seen); Hyaline Casts Urine 0-2 /LPF (0-2); RBC Urine 0-2 /HPF (0-2); UACC Culture Trigger YES
[2023-04-05 14:26] LABS: Alanine Aminotransferase 12 U/L (0-31); Albumin Level 4.2 g/dL (3.5-5.0); Alkaline Phosphatase 59 U/L (39-117); Anion Gap 12 (12-20); Aspartate Amino Transferase 16 U/L (5-31); Bilirubin Total 0.4 mg/dL (0.0-1.0); Blood Urea Nitrogen 17 mg/dL (9-16); Calcium 10.3 mg/dL (8.4-10.2); Carbon Dioxide 32 mmol/L (22-29); Chloride 103 mmol/L (96-108); Cholesterol 176 mg/dL (<200); Estimated Glomerular Filt Rate > 60; Glucose Fasting 108 mg/dL (60-99); Glucose Random 109 mg/dL (60-115); HDL Cholesterol 59 mg/dL (>40); LDL Cholesterol Calculated 91 mg/dL (<100); Potassium 4.6 mmol/L (3.3-5.1); Sodium 142 mmol/L (135-145); Total Protein 7.4 g/dL (6.5-8.0); Triglycerides 131 mg/dL (<150)
[2023-04-05 14:29] LABS: Creatinine Urine 142.64 mg/dL; Microalbum/Creatinine Ratio Ur 6.3 ug/mg cr (<30)
[2023-04-05 14:31] LABS: TSH reflex Free T4 1.22 uIU/mL (0.32-4.0)
== END 2023-04-05 11:20 | disposition home or self-care (01) ==
LOC: HO.HMGCLDS 11:19
PROVIDERS: PCP Nurse Practitioner Family; Referring Provider Internal Medicine Cardiovascular Disease; Visit Provider Nurse Practitioner Family
DX: E11.9 Type 2 diabetes mellitus without complications (principal); I48.0 Paroxysmal atrial fibrillation
CPT/HCPCS: 36415; 80048; 80053; 80061; 81001; 82043; 82570; 84443; 85025; 87086

== ENCOUNTER → 2023-04-12 11:10 | Outpatient (BNVA) | payer MEDICARE, SELFPAY | PROVIDERS: PCP Nurse Practitioner Family; Visit Provider Internal Medicine Cardiovascular Disease ==

== ENCOUNTER 2024-02-15 09:50 | Outpatient (REF) | payer MEDICARE, SELFPAY ==
--- NOTE | ~2024-02-15 | MM_ITS ---
EXAMINATION: MM SCREENING DIGITAL BREAST TOMOSYNTHESIS, BILATERAL CLINICAL INFORMATION: Screening. Asymptomatic. COMPARISON: Mammography: Comparison is made with available priors TECHNIQUE: Digital breast mammography with tomosynthesis is performed in both the craniocaudal and mediolateral oblique views along with computer-aided detection (CAD). FINDINGS: There are scattered areas of fibroglandular density (ACR BI-RADS breast composition Category b). Prior excisional biopsy. There are no significant masses, abnormal calcifications, or other abnormalities. MM/MM tomosynthesis screening BI IMPRESSION: No mammographic evidence of malignancy. ASSESSMENT: BI-RADS BI-RADS 2 - Benign Findings RECOMMENDATION: Routine annual mammography screening. 1 year F/U This examination should not preclude the clinical evaluation of a suspicious palpable abnormality. This patient's information was entered into a reminder system with a target due date for their next mammogram. Electronically signed by: Mira Isaacs DO 02/24/2024 09:55 AM BALDO
== END 2024-02-15 09:51 | disposition home or self-care (01) ==
LOC: HO.MAMMO 09:50
PROVIDERS: PCP Nurse Practitioner Family; Visit Provider Nurse Practitioner Family
DX: Z12.31 Encounter for screening mammogram for malignant neoplasm of breast (principal)
CPT/HCPCS: 77063; 77067

== ENCOUNTER → 2024-02-15 10:00 | Outpatient (BNV) | payer MEDICARE, SELFPAY | PROVIDERS: PCP Nurse Practitioner Family; Visit Provider Internal Medicine | DX: Z12.31 Encounter for screening mammogram for malignant neoplasm of breast (principal) | CPT/HCPCS: 77063; 77067 ==

== ENCOUNTER 2024-03-16 10:07 | Outpatient (AMB) | payer MEDICARE, SELFPAY ==
[2024-03-16 10:11] VITALS: BP 132/76; PULSE 69; O2SAT 97; BMI 33.3
--- NOTE | 2024-03-16 10:11 | A.OFFPC_ITS ---
Vital Signs 03/16/24 10:11 Height 5 ft 5 in Weight 200 lb BMI 33.3 BP 132/76 Blood Pressure Location Lt brachial Position Sitting Pulse 69 Pulse Source Pulse Oximeter Pulse Oximetry (%) 97 Oxygen Delivery Method Room Air Intake Visit Reasons: follow up Allergies No Known Allergies [No Known Allergies*] Allergy (Verified 03/03/23 11:07) Tobacco use date assessed: 03/16/24 Fall risk assessment: 1 Fall in past year Last assessed Fall Risk: 03/16/24 Dental Screening Dental Screen Date: 03/16/24 Did you have a dental visit in the last 12 months?: No Did you have a dental problem in the last 6 months where you did not have access to dental care?: No Was dental information given to patient?: Patient declined HPI follow up 2 HPI Details Chief Complaint Follow-up for diabetes management. History of Present Illness Social History - Family status: The patient is currentl y managing stress related to her only daughter, who may have carcinoma and resides out of state in [place]. - Vaccinations: She has declined flu vac cination. Health Maintenance - Colonoscopy: Up to date. - Mammogram: Up to date. - Flu vaccination: Declined. - Eye examination: Reported up to date. Review of Systems - Neurological: Denies neuropathy. - Endocrinological: Denies polydipsia, p olyuria. - Psychological: Denies suicidal ideatio n or homicidal ideation. Physical Exam General: Cooperative, healthy appearing, comfortable, no acute distress and well developed, obese Orientation: Patient oriented x3 Limitations: No limitations Head: Normal to inspection Ears: Hearing grossly normal bilaterally Nose: Normal external nose present Face and sinus: Normal facial exam Eyes: Appearance normal, both eyes and all related structures Neck: Normal visual inspection and Yes full ROM Respiratory: Normal respiratory effort and able to speak in complete sentences. Clear to auscultation bilaterally Cardiovascular: Regular rate and rhythm. Normal S1 and S2 with a faint systolic murmur GI: Normal to inspection. Soft to palpation and nontender Skin: No rashes or lesions noted Neuro: Patient oriented x3 Extremities: Normal to inspection, good sensation with use of monofilament to feet, feet intact Results - Labs: Hemoglobin A1c measured at 5.5. Plan - Continue monitoring diabetes control w ith regular follow-ups and lab assessments. - Encourage maintaining current diabetes management strategies as the patient's A1c level indicates good control. - Monitor mental health status, given fa chritsine stressors, and provide support as needed. Patient was informed and verbally consented to the use of an ambient scribe for clinic note documentation during this visit. Discussion Notes During our discussion, I noted that the patient's diabetes management is progressing well, with an A1c of 5.5 reflecting good control. We reviewed the importance of maintaining regular monitoring and control of her condition. The patient is aware of her current health status and is actively involved in managing her diabetes. Considering her family situation, I advised staying in contact with her daughter and recommended seeking support if the stress becomes overwhelming. We also discussed the option of flu vaccination, which she declined. Overall, I reassured the patient regarding her current health status and the plan to continue monitoring her condition. Patient Instructions - Continue with current diabetes managem ent regimen and monitor blood sugars regularly. - Maintain communication with healthcare professionals for any changes in symptoms. - Stay in touch with family and friends for emotional support. - Be aware of any new symptoms or stress ors and seek medical advice as needed. - Follow up for routine diabetes assessm ent and monitoring as scheduled. [facility] Medical History Obstructive sleep apnea HTN (hypertension) Paroxysmal atrial fibrillation Depression Migraines Peripheral neuropathy Osteopenia Osteoarthritis Diabetes Surgical History History of lumpectomy of right breast History of total abdominal hysterectomy and bilateral salpingo-oophorectomy History of abdominal hernia History of partial colectomy Family History Father No problems noted. Mother Diabetes mellitus Maternal Grandmother Diabetes mellitus Stroke Maternal Grandfather Lung cancer Smoker Social History Housing: House Alcohol intake: never Patient Tobacco Use Status: Former Tobacco user Tobacco use type: Cigarette Years Smoked: 11/12/2011 e-Cigarette/Vaping Use: Never Used Substance Use Type: Marijuana service: No Current occupational status: retired and disabled Current occupational exposures/hazards: No Cognitive needs: No Hearing needs: No Vision needs: No Questionnaire PHQ-9 Over the last 2 weeks, how often have you been bothered by any of the following problems? 1. Little interest or pleasure in doing things: several days 2. Feeling down, depressed, or hopeless: several days 3. Trouble falling or staying asleep, or sleeping too much: nearly every day 4. Feeling tired or having little energy: several days 5. Poor appetite or overeating: not at all 6. Feeling bad about yourself - or that you are a failure or have let yourself or your family down: not at all 7. Trouble concentrating on things, such as reading the newspaper or watching television: not at all 8. Moving or speaking so slowly that other people could have noticed. Or the opposite - being so fidgety or restless that you have been moving around a lot more than usual: not at all 9. Thoughts that you would be better off or of hurting yourself in some way: not at all Total score: 6 Depression Screening Interpretation: Negative (denies any si or HI, refuses therapist) Depression Screening Done: Yes 84684 - PHQ-9 Billing: Yes Source: Developed by Drs. Vaughn Moses, Kellie Mason, Alfonso López and colleagues, with an educational sarwat from [employer]. Thrive Questionnaire Date Thrive assessed: 03/16/24 I am a: Patient What is your living situation today?: I have a steady place to live Within the past 12 months, did the food you bought not last and you didn't have the money to get more?: I choose not to answer this question Within the past 12 months, did you worry whether your food would run out before you got money to buy more?: I choose not to answer this question Do you have trouble paying for medicines?: No Do you have trouble getting transportation to medical appointments?: No Do you have trouble paying your heating and electricity bill?: No Do you have trouble taking care of your child, family member or friend?: I choose not to answer this question Do you have trouble with day-to-day activities such as bathing, preparing meals, shopping, managing finances, etc.?: No Are you currently unemployed and looking for a job?: No Are you interested in more education?: No Please select the resources that you would like help with: None Currently or been in a relationship where the following occur: I choose not to answer THRIVE Score: 0 AUDIT C Alcohol Use Questionnaire (AUDIT-C) 1. How often do you have a drink containing alcohol?: Monthly or less 2. How many drinks containing alcohol do you have on a typical day when you are drinking?: 1 or 2 3. How often do you have six or more drinks on one occasion?: Never Total Score: 1 Score Reviewed/Action Taken: Yes CARMINA-7 AMB Questionnaire CARMINA-7 Date CARMINA - 7 assessed: 03/16/24 Feeling nervous, anxious, or on edge: 3 = Nearly every day Not being able to stop or control worryin = Nearly every day Worrying too much about different things: 3 = Nearly every day Trouble relaxin = Nearly every day Being so restless that it is hard to sit still: 2 = More than half the days Becoming easily annoyed or irritable: 1 = Several days Feeling afraid as if something awful might happen: 3 = Nearly every day Total CARMINA-7 score (0-4 normal; 5-9 mild; 10-14 moderate; 15-21 severe): 18 Source: Developed by Drs. Vaughn Moses, Kellie Mason, Alfonso López and colleagues, with an educational sarwat from [employer]. CARMINA-7 Assessment Billing CARMINA-7 Assessment Tool: CARMINA-7 Assessment 89410 (denies any SI or HI, refuses a therapist) Physical exam (Primary Care) Vital Signs: Last Vital Signs Pulse 69 03/16/24 10:11 BP 132/76 03/16/24 10:11 Pulse Ox 97 03/16/24 10:11 Oxygen Delivery Method Room Air 03/16/24 10:11 BMI result Body Mass Index 33.3 Tobacco/Smoking Status: Tobacco use Status Tobacco use date assessed 03/16/24 03/16/24 10:18 Patient Tobacco Use Status Former Tobacco user 03/16/24 10:11 Tobacco use type Cigarette 03/16/24 10:11 e-Cigarette/Vaping Use Never Used 03/16/24 10:11 PHQ-9: PHQ-9 Score PHQ-9: Total score 6 03/16/24 10:18 Depression Screening Interpretation: Negative (denies any si or HI, refuses therapist) Thrive Assessment: Date of Thrive Assessment Date Thrive assessed 03/16/24 03/16/24 10:11 Currently or been in a relationship where the following occur: I choose not to answer Results AMB Hemoglobin A1c AMB Hemoglobin A1c 5.5 % Last Edit by MICHELLE Arce on 03/16/24 10:3 2 Coding Level of Care Code Est Pt Level 3 (73285) Diagnoses Diabetes E11.9 Obesity (BMI 30-39.9) E66.9 Smoker F17.200 Additional Codes PHQ-9 - 84386 - PHQ-9 Billing: Yes ([id number]) CARMINA-7 Assessment Billing - CARMINA-7 Assessment Tool: CARMINA-7 Assessment 51006 ([id number]) Assessment & Plan Assessment & Plan (1) Diabetes: Code(s): E11.9 - Type 2 diabetes mellitus without complications Category: Medical (2) Obesity (BMI 30-39.9): Code(s): E66.9 - Obesity, unspecified Category: Medical (3) Smoker: Code(s): F17.200 - Nicotine dependence, unspecified, uncomplicated Category: Social Hx Plan . Orders: Orders Comprehensive [place]. Panel Fast Today E11.9 - Type 2 diabetes mellitus without complications AMB Hemoglobin A1c Today Z13.9 - Encounter for screening, unspecified Complete Blood Count Auto Diff Today E11.9 - Type 2 diabetes mellitus without complications TSH reflex Free T4 Today E11.9 - Type 2 diabetes mellitus without complications UA CC w/rflx Micro + Cult Today E11.9 - Type 2 diabetes mellitus without complications Lipid Panel Today E11.9 - Type 2 diabetes mellitus without complications Microalbumin, Random (w Creat) Today E11.9 - Type 2 diabetes mellitus without complications Referrals Lung Cancer Screening Referral F17.200 - Nicotine dependence, unspecified, uncomplicated
== END 2024-03-16 10:59 | disposition home or self-care (01) ==
PROVIDERS: PCP Nurse Practitioner Family; Visit Provider Nurse Practitioner Family
DX: E11.9 Type 2 diabetes mellitus without complications (principal); E66.9 Obesity, unspecified; Z68.33 Body mass index [BMI] 33.0-33.9, adult; F17.200 Nicotine dependence, unspecified, uncomplicated

== ENCOUNTER → 2024-03-16 10:07 | Outpatient (BNVA) | payer MEDICARE, SELFPAY | PROVIDERS: PCP Nurse Practitioner Family; Visit Provider Nurse Practitioner Family | DX: E11.9 Type 2 diabetes mellitus without complications (principal); E66.9 Obesity, unspecified; F17.210 Nicotine dependence, cigarettes, uncomplicated; Z68.33 Body mass index [BMI] 33.0-33.9, adult | CPT/HCPCS: 83036; 96127; 99212 ==

== ENCOUNTER → 2024-05-30 13:56 | Outpatient (REF) | payer MEDICARE, SELFPAY ==
--- NOTE | 2024-05-30 13:59 | CA_ITS ---
Transthoracic Echocardiogram Patient (Last, First, Middle): Felicity Goldman G Gender: Female Date of : 1955 Age: 68 Procedure Date: 05/30/2024 Procedure Type: Transthoracic Echocardiogram Location: OP Height: 165.1 cm Weight: 90.72 kg BSA: 1.98 m2 Heart Rate: bpm BP: 132 / 76 mmHg Pilot Manager: [place] Referring MD: Severo Nix NP Symptoms: I48.0 - Paroxysmal atrial fibrillation Study Quality: Adequate ECG Rhythm: Sinus Conclusions: - The left ventricular systolic function is normal. The calculated ejection fraction is 67% by biplane method. - Early aortic stenosis. - Large plaque is seen in the sino tubular ridge. Findings Left Ventricle Normal left ventricular cavity size. The left ventricular systolic function is normal. The calculated ejection fraction is 67% by biplane method. There is no evidence of regional wall motion abnormalities. Diastolic function is normal for age. Possible septal hypertrophy, but difficult to measure. Right Ventricle Normal right ventricular cavity size and systolic function. Atria Both atria are normal in size. Aortic Valve There is a normal trileaflet aortic valve. There is mild calcification of the aortic valve. There is no aortic valve regurgitation. Early aortic stenosis. Mitral Valve The mitral valve appears normal. There is mild mitral annular calcification. There is no mitral valve regurgitation. There is no mitral valve stenosis. Pulmonic Valve There is trace pulmonic valve regurgitation. Tricuspid Valve There is trace tricuspid valve regurgitation. There is no evidence of pulmonary hypertension. Great Vessels The asc aorta is normal in size. Large plaque is seen in the sino tubular ridge. Venous The inferior vena cava is normal in size and collapses greater than 50% with inspiration. Pericardium/Pleural There is no evidence of pericardial effusion. Prior Study Comparison No significant change compared to prior study dated: 01/24/2018. Measurements 2D Linear Measurements IVSd: 1.45 0.6-0.9/0.6-1.0 cm LVIDd: 4.20 3.9-5.3/4.2-5.9 cm LVIDd Index: 2.12 2.4-3.2/2.2-3.1 cm/m2 LVIDs: 3.08 2.0-3.6 cm LVPWd: 1.01 0.7-1.1 cm LA Diam: 3.40 2.7-3.8/3.0-4.0 cm LAIDs Index: 1.72 1.5-2.3 cm/m2 LV Mass: 230.17 67-162/88-224 g LV Mass Index: 116.25 43-95/49-115 g/m2 LVOT Diam: 2.10 3.0+(-)1.3 cm 2D Systolic Function EF 4C: 65.40 >55% EF 2C: 69.30 >55% EF BiP: 67.20 >55% Mitral Valve MV Pk E: 0.82 MV PK A: 0.84 MV Decel Time: 229.00 E/A: 1.00 E'Lateral: 9.14 E'Medial: 7.07 E/E' Med: 11.60 E/E' Lat: 8.90 PHT: 67.00 MVA PHT: 3.28 Decel [place]: 3.58 Aortic Valve AoV Pk Joe: 1.73 AoV Mn Joe: 1.23 AoV VTI: 0.45 AoV Pk Grad: 12.00 Aov Mn Grad: 7.00 VALERIANO Cont.VTI: 1.64 LVOT LVOT Pk Joe: 0.91 LVOT Mn Joe: 0.59 LVOT VTI: 0.21 LVOT Pk Grad: 3.00 LVOT Mn Grad: 2.00 LVOT Diam: 2.10 LVOT Area: 3.46 Diastolic Function MV Pk E: 0.82 MV Pk A: 0.84 E/A: 1.00 E'Medial: 7.07 E/E' Med: 11.60 E' Laterial: 9.14 E/E' Lat: 8.90 Right Ventricle TAPSE (mm): 24.40 TVS' Joe: 11.30 Tricuspid Valve TR Pk Joe: 1.59 TR Pk Grad: 10.00 RA Press: 3.00 RVSP: 13.00 Great Vessels Aorta Sinus of Valsalva: 3.40 2.0-3.[address] [place]: 2.08 1.7-3.4 cm Ao Asc: 3.70 2.1-3.4 cm Updated in Other Vendor System with Status of Final Jose Guadalupe Ramirez MD electronically signed on 05/30/2024 4:01:24 PM with status of Final
== END ==
LOC: HO.CARD 13:56
PROVIDERS: PCP Nurse Practitioner Family
DX: I48.0 Paroxysmal atrial fibrillation (principal)
CPT/HCPCS: 93306

== ENCOUNTER → 2024-05-30 13:59 | Outpatient (BNV) | payer MEDICARE, SELFPAY | PROVIDERS: PCP Nurse Practitioner Family; Visit Provider Internal Medicine | DX: I70.0 Atherosclerosis of aorta (principal); I42.2 Other hypertrophic cardiomyopathy; I35.0 Nonrheumatic aortic (valve) stenosis | CPT/HCPCS: 93306 ==

== ENCOUNTER 2024-06-07 13:48 | Outpatient (AMB) | payer MEDICARE, SELFPAY ==
[2024-06-07 13:53] VITALS: BP 110/50; PULSE 56; BMI 34.2
--- NOTE | 2024-06-07 13:53 | MHC.OFFVIS ---
Vital Signs 06/07/24 13:53 Height 5 ft 5 in Weight 205 lb 7.533 oz BMI 34.2 BP 110/50 L Blood Pressure Location Lt brachial Position Sitting Pulse 56 Pulse Source Pulse Oximeter Intake Visit Reasons: 1 year f/up echo Manager Spanish Required: No Accompanied by: Friend Allergies No Known Allergies [No Known Allergies*] Allergy (Verified 03/03/23 11:07) Medication List - Last Reconciled 06/07/24 by Severo Nix NP atenolol 25 mg PO BID cetirizine 10 mg PO BID dabigatran etexilate (Pradaxa) PO BID flecainide 100 mg PO Q12H hydrochlorothiazide 25 mg PO DAILY 90 days lisinopril 2.5 mg PO DAILY 90 days lorazepam 0.5 mg PO BID PRN 30 days omega-3 acid ethyl esters 1 cap PO DAILY 90 days pregabalin 50 mg PO TID 90 days rosuvastatin 20 mg PO DAILY 90 days venlafaxine ER 150 mg PO DAILY 90 days HPI Comments Details: This is a 68-year-old female patient presenting for a follow-up visit. Patient has a medical history of hypertension, paroxysmal AFib, sleep apnea, and obesity. The patient reports doing well overall and denies any symptoms of exertional chest pain, shortness of breath, palpitations, dizziness, fatigue, orthopnea, PND, presyncope, or syncope. In July of last year, the patient experienced a fall in the parking [facility] and [place] due to a dog, resulting in an injury to her right knee and developed blood clots. As a result her anticoagulation therapy was switched from Eliquis to Pradaxa. Currently, the patient's main complaint is swelling in her left lower extremity that has been present for the past few days, accompanied by some erythema. She denies any injury, open wounds, or trauma to the leg. [facility] Medical History Obstructive sleep apnea HTN (hypertension) Paroxysmal atrial fibrillation Depression Migraines Peripheral neuropathy Osteopenia Osteoarthritis Diabetes Surgical History History of lumpectomy of right breast History of total abdominal hysterectomy and bilateral salpingo-oophorectomy History of abdominal hernia History of partial colectomy Family History Father No problems noted. Mother Diabetes mellitus Maternal Grandmother Diabetes mellitus Stroke Maternal Grandfather Lung cancer Smoker Social History Housing: House Alcohol intake: never Patient Tobacco Use Status: Former Tobacco user Tobacco use type: Cigarette Years Smoked: 11/12/2011 e-Cigarette/Vaping Use: Never Used Substance Use Type: Marijuana service: No Current occupational status: retired and disabled Current occupational exposures/hazards: No Cognitive needs: No Hearing needs: No Vision needs: No Review of Systems Const Denies chills, Denies fatigue, Denies fever(s), Denies weight gain and Denies weight loss ENT Denies dizziness Card Denies chest pain, Reports leg edema, Denies lightheadedness, Denies palpitations, Denies dyspnea on exertion, Denies orthopnea and Denies other Resp Denies cough and Denies dyspnea on exertion GI Denies hematochezia and Denies change in stool character Musc Denies abnormal gait, Denies muscle weakness, Denies numbness, Denies radiating pain into limb and Denies tingling Neuro Denies abnormal gait, Denies dizziness, Denies numbness and Denies tingling Endo Denies fatigue and Denies palpitations Physical Exam Vital Signs: Last Vital Signs Pulse 56 06/07/24 13:53 BP 110/50 L 06/07/24 13:53 BMI result Body Mass Index 34.2 Const General: cooperative, healthy appearing, comfortable and no acute distress Orientation/consciousness: patient oriented x3 HEENT Head: Yes normal to inspection Neck Neck: Yes normal visual inspection, Yes trachea midline and Yes supple Chest Chest palpation & inspection: normal inspection of the chest Resp Effort & Inspection: normal respiratory effort Auscultation: clear to auscultation bilaterally, no crackles, no rales, no rhonchi and no wheezes Cardio Jugular venous distension: no JVD Palpation: normal PMI Rate: bradycardic Rhythm: regular rhythm Heart sounds: S1 normal heart sound present, S2 normal heart sound present, no click, no gallops, no murmurs and no rubs Peripheral pulses: Peripheral pulses 2+ throughout GI Inspection: Yes normal to inspection Palpation (GI): Soft to palpation Auscultation: normal bowel sounds Skin General skin exam: no rashes or lesions noted Neuro General: patient oriented x3 Extrem Other: nonpitting left leg edema General: Yes normal to inspection and No calf tenderness Psych Appearance: grossly normal Mental Status: mental status grossly normal Speech and movement: Normal speech and movement present Office Procedures EKG Details: EKG today showed underlying sinus bradycardia, rate 56 beats per minute, low-voltage QRS, nonspecific T-wave abnormalities, [place], [place] [id number], Complete Assessment & Plan Assessment & Plan (1) Paroxysmal atrial fibrillation: Code(s): I48.0 - Paroxysmal atrial fibrillation Category: Medical Plan: EKG today showed sinus rhythm. Denies any palpitations. Continue with Pradaxa for full anticoagulation therapy. Denies any signs of bleeding. Continue flecainide and atenolol therapy. We will check labs periodically. Patient will return for an EKG in 6 months. (2) HTN (hypertension): Code(s): I10 - Essential (primary) hypertension Category: Medical Plan: Blood pressure today is well-controlled. Continue with the current regimen. Advised to continue monitoring blood pressures at home and keeping a log. Blood pressure goal ideally less than 130/80. (3) Left leg swelling: Code(s): M79.89 - Other specified soft tissue disorders Category: Medical Plan: Nonpitting edema to the left lower leg with mild erythema. No open wound or drainage noted. We will proceed with an ultrasound of the left leg to rule out any presence of blood clots. (4) Obstructive sleep apnea: Code(s): G47.33 - Obstructive sleep apnea (adult) (pediatric) Category: Medical Plan: Continue CPAP therapy. (5) Obesity (BMI 30-39.9): Code(s): E66.9 - Obesity, unspecified Category: Medical Plan: Continue statin therapy. Advised heart healthy diet, regular exercise, losing weight, and aggressive management of vascular risk factors. Patient will follow-up in 1 year in the office. In the interim, patient will call us with any concerns or change in symptoms. This note was generated using voice recognition software. While every effort has been made to ensure accuracy and proper electronic publications specialist, there may be occasional errors that could affect the content or meaning of the described symptoms. Orders: Orders Complete Blood Count no Diff Today I48.0 - Paroxysmal atrial fibrillation AMB EKG-In Office Today I48.0 - Paroxysmal atrial fibrillation ECG 12 lead EKG 6 Months I48.0 - Paroxysmal atrial fibrillation US venous duplex LE LT Today M79.89 - Other specified soft tissue disorders Basic Metabolic Panel Today I48.0 - Paroxysmal atrial fibrillation Coding Level of Care Code Est Pt Level 4 (36373) Complex EM visit Add On G2211 Diagnoses Paroxysmal atrial fibrillation I48.0 HTN (hypertension) I10 Left leg swelling M79.89 Obstructive sleep apnea G47.33 Obesity (BMI 30-39.9) E66.9 CPT Codes EKG - CPT: 67786-[id number], Complete ([id number]) Time Spent (min) 31 Comment Time spent in reviewing the chart, test results, assessment, counseling and documentation.
== END 2024-06-07 14:30 | disposition home or self-care (01) ==
PROVIDERS: PCP Nurse Practitioner Family
DX: I48.0 Paroxysmal atrial fibrillation (principal); I10 Essential (primary) hypertension; M79.89 Other specified soft tissue disorders; G47.33 Obstructive sleep apnea (adult) (pediatric); E66.9 Obesity, unspecified
CPT/HCPCS: 93010; 99214; G2211

== ENCOUNTER → 2024-06-07 13:48 | Outpatient (BNVA) | payer MEDICARE, SELFPAY | PROVIDERS: PCP Nurse Practitioner Family | DX: I10 Essential (primary) hypertension (principal); I48.0 Paroxysmal atrial fibrillation; M79.89 Other specified soft tissue disorders; E66.9 Obesity, unspecified; G47.33 Obstructive sleep apnea (adult) (pediatric); Z79.01 Long term (current) use of anticoagulants; Z68.34 Body mass index [BMI] 34.0-34.9, adult; Z91.81 History of falling | CPT/HCPCS: 93005; 99212 ==

== ENCOUNTER 2024-06-19 09:50 | Outpatient (REF) | payer MEDICARE, SELFPAY ==
--- NOTE | ~2024-06-19 | US_ITS ---
CLINICAL HISTORY: M79.89 - Other specified soft tissue disorders lle swelling r o dvt Venous duplex ultrasound left lower extremity Comparison: None Findings: The visualized deep veins are fully compressible with normal Doppler color flow and spectral tracings. No popliteal cyst. IMPRESSION: 1. Negative for left lower extremity deep vein thrombosis. This document has been electronically signed by: Shelli Bauer MD on 06/19/2024 16:21:43
== END 2024-06-19 09:51 | disposition home or self-care (01) ==
LOC: HO.HMGCX 09:50
PROVIDERS: PCP Nurse Practitioner Family
DX: M79.89 Other specified soft tissue disorders (principal)
CPT/HCPCS: 93971

== ENCOUNTER → 2024-06-19 09:54 | Outpatient (BNV) | payer MEDICARE, SELFPAY | PROVIDERS: PCP Nurse Practitioner Family; Visit Provider Radiology Diagnostic Radiology | DX: M79.89 Other specified soft tissue disorders (principal) | CPT/HCPCS: 93971 ==

== ENCOUNTER 2024-07-01 09:04 | Outpatient (AMB) | payer MEDICARE, SELFPAY ==
--- NOTE | 2024-07-01 09:09 | AM.OFFWIN_ITS ---
Intake Vital Signs 07/01/24 09:16 Height 5 ft 5 in Weight 205 lb BMI 34.1 BP 130/80 Blood Pressure Location Lt brachial Position Sitting Pulse 68 Pulse Source Pulse Oximeter Temp 98.0 F Temp Source Oral Pulse Oximetry (%) 97 Oxygen Delivery Method Room Air Intake Visit Reasons: EP Rash on face/nose Patient Tobacco Use Status: Former Tobacco user Allergies No Known Allergies [No Known Allergies*] Allergy (Verified 07/01/24 09:16) Do you need a note to return to daycare/school/sports/work: Yes HPI HPI Comments History of Present Illness Details A 68-year-old patient presents with multiple skin concerns, including a yeast infection in the belly button and a rash under the breasts. The patient reports that these issues are new and have never occurred before. The patient states that the problem began with a yeast infection in the belly button. The infection was characterized by thick, whitish material on the inside of the belly button, with dryness and an odor. The patient attempted to self- treat using a product purchased from [employer], applying it only to the belly button area. Subsequently, the patient developed redness under the breasts with small bumps, which have since evolved into a smooth, red rash. The patient describes the rash as very itchy but reports not scratching. The affected skin is flaking off. The patient denies fever, chills, or warmth in the affected areas. The rash under the breasts is described as red without bumps and is not sore or itchy. The patient reports that all of these skin changes are new since yesterday and that their skin has never exhibited such symptoms before. There is no involvement of the mouth or groin region. The patient has a history of diabetes, which is controlled by diet. They deny any recent changes in medication or use of new soaps, lotions, or other topical products aside from the [employer] purchase for the belly button. [facility] Medical History Obstructive sleep apnea HTN (hypertension) Paroxysmal atrial fibrillation Depression Migraines Peripheral neuropathy Osteopenia Osteoarthritis Diabetes Surgical History History of lumpectomy of right breast History of total abdominal hysterectomy and bilateral salpingo-oophorectomy History of abdominal hernia History of partial colectomy Family History Father No problems noted. Mother Diabetes mellitus Maternal Grandmother Diabetes mellitus Stroke Maternal Grandfather Lung cancer Smoker Social History Housing: House Alcohol intake: never Patient Tobacco Use Status: Former Tobacco user Tobacco use type: Cigarette Years Smoked: 11/12/2011 e-Cigarette/Vaping Use: Never Used Substance Use Type: Marijuana service: No Current occupational status: retired and disabled Current occupational exposures/hazards: No Cognitive needs: No Hearing needs: No Vision needs: No Review of Systems Const Denies fatigue and Denies fever(s) Skin/Breast Reports rash Endo Denies fatigue Physical Exam Vital Signs: Last Vital Signs Temp 98.0 F 07/01/24 09:16 Pulse 68 07/01/24 09:16 BP 130/80 07/01/24 09:16 Pulse Ox 97 07/01/24 09:16 Oxygen Delivery Method Room Air 07/01/24 09:16 BMI result Body Mass Index 34.1 Const General: cooperative, healthy appearing, no acute distress and alert Orientation/consciousness: patient oriented x3 Limitations: no limitations HEENT Head: Yes normal to inspection Ears: hearing grossly normal bilaterally General nose exam: Normal external nose present Resp Effort & Inspection: normal respiratory effort and able to speak in complete sentences Cardio Rate: regular rate Skin Other: scaly raised rash present in the antecubital fossa bilaterally with an erythematous base. Scaling and flaking rash on the bridge of the nose. Erythema under the breasts bilaterally. Whitish discharge with some erythema around the umbilicus no warmth to the touch Neuro General: patient oriented x3 Extrem General: Yes normal to inspection Assessment & Plan Assessment & Plan (1) Rash: Code(s): R21 - Rash and other nonspecific skin eruption Plan: Possible Psoriasis on Arms: - Patient reports new rash on arms that developed yesterday - Presentation different from intertrigo-like symptoms in other areas - Suspicion of psoriasis based on clinical appearance and rapid onset Plan: - Prescribe topical steroid cream for use on arms - Educate patient on proper application of cream - Follow up if symptoms do not improve - Consider dermatology referral if condition persists or diagnosis remains unclear 3. Diabetes: - Patient reports diabetes controlled by diet - Information relevant when considering treatment options - Particularly important for systemic medications that could affect blood glucose levels Plan: - Continue current diet management for diabetes - Avoid oral steroids for rash treatment to prevent potential blood sugar fluctuations - Monitor for any changes in glycemic control with use of topical medications (2) Intertriginous candidiasis: Code(s): B37.2 - Candidiasis of skin and nail Plan: Patient presents with symptoms consistent with intertrigo in the belly button and under the breasts - Belly button infection started first, described as thick, whitish, dry, and odorous - Rash under breasts initially presented with little bumps but progressed to smooth, red, and flaking skin - These areas are common sites for intertrigo due to warm, dark, and moist environment - Patient has been self-treating belly button with [id number] product from [employer] - No fever or warmth reported, suggesting non-infectious etiology Plan: - Prescribe antifungal powder and cream for use under breasts and in belly button - Educate patient on keeping affected areas dryIntertrigo - Follow up if symptoms do not improve - Consider dermatology referral if condition persists Medications: New triamcinolone acetonide 0.1% apply to rash on arms and nasal fold. No more than 5 days on the face then 5 day break from using on the face 1 appl topical BID 30 grams 0RF econazole nitrate 1% use under the breast and belly button 1 appl topical BID 30 grams 0RF zinc oxide-corn starch 15-81 % use as needed throughout the day to keep the skin dry 1 ea topical .prn 142 grams 0RF Coding Level of Care Code Est Pt Level 4 (52431) Diagnoses Rash R21 Intertriginous candidiasis B37.2
[2024-07-01 09:16] VITALS: BP 130/80; PULSE 68; TEMP 36.7; O2SAT 97; BMI 34.1
== END 2024-07-01 09:58 | disposition home or self-care (01) ==
PROVIDERS: PCP Nurse Practitioner Family; Visit Provider Physician Assistant
DX: R21 Rash and other nonspecific skin eruption (principal); B37.2 Candidiasis of skin and nail

== ENCOUNTER → 2024-07-01 09:04 | Outpatient (BNVA) | payer MEDICARE, SELFPAY | PROVIDERS: PCP Nurse Practitioner Family | DX: R21 Rash and other nonspecific skin eruption (principal); B37.2 Candidiasis of skin and nail | CPT/HCPCS: 99212 ==

== ENCOUNTER 2024-07-13 11:51 | Outpatient (AMB) | payer MEDICARE, SELFPAY ==
[2024-07-13 12:44] VITALS: BP 120/80; PULSE 93; O2SAT 98
--- NOTE | 2024-07-13 12:44 | MHC.OFFWIV ---
Intake Vital Signs 07/13/24 12:44 Weight 199 lb BP 120/80 Blood Pressure Location Lt brachial Position Sitting Pulse 93 Pulse Source Pulse Oximeter Pulse Oximetry (%) 98 Oxygen Delivery Method Room Air Intake Visit Reasons: EP Rash Intake Note: Patient here for rash all over body that started about 2 weeks ago initially on the nose. Patient Tobacco Use Status: Former Tobacco user Allergies No Known Allergies [No Known Allergies*] Allergy (Verified 07/01/24 09:16) HPI HPI Comments History of Present Illness Details History of Present Illness - The patient is a 68-year-old female presenting with multiple rashes and dryness primarily on the face, arms, and in the umbilical area, extending to the legs and groin as well as an itchy rash on her back. - Initially, symptoms included dryness and redness of the nose, she was prescribed triamcinolone cream but she did not use it as the instructions were unclear. It is not itchy, just feels very dry. - An intertriginous yeast infection was identified in the umbilical region, with similar manifestations under the breasts. Treatments included antifungal econazole cream, she was given a zinc powder but was not dispensed it at the pharmacy so she did not use it. She did use the econazole but the rash has gotten dramatically worse and now extends and covers most of her lower abdomen and her groin. - The overall condition has worsened, particularly over the last five to six days, with no elevation in body temperature or systemic symptoms. Denies fevers. Physical Exam General: Cooperative, healthy appearing, comfortable, no acute distress and well developed Orientation: Patient oriented x3 Limitations: No limitations Head: Normal to inspection Ears: Hearing grossly normal bilaterally Nose: Redness noted Face and sinus: Dry skin noted on the face Eyes: Appearance normal, both eyes and all related structures Neck: Normal visual inspection and Yes full ROM Respiratory: Normal respiratory effort and able to speak in complete sentences. Skin: small irregular flat bright erythematous areas on her bilateral arms, lower abdomen. flat bright erythematous areas in umbilicus and extending to surround it by about 2cm around, similar rash in bilat groins. Back is notable for widespread upper thoracic to lower lumbar areas of raised maculopapular rash with some scabbed lesions. no warmth or drainage to any lesions. Neuro: Patient oriented x3 Extremities: Normal to inspection [facility] Medical History Obstructive sleep apnea HTN (hypertension) Paroxysmal atrial fibrillation Depression Migraines Peripheral neuropathy Osteopenia Osteoarthritis Diabetes Surgical History History of lumpectomy of right breast History of total abdominal hysterectomy and bilateral salpingo-oophorectomy History of abdominal hernia History of partial colectomy Family History Father No problems noted. Mother Diabetes mellitus Maternal Grandmother Diabetes mellitus Stroke Maternal Grandfather Lung cancer Smoker Social History Housing: House Alcohol intake: never Patient Tobacco Use Status: Former Tobacco user Tobacco use type: Cigarette Years Smoked: 11/12/2011 e-Cigarette/Vaping Use: Never Used Substance Use Type: Marijuana service: No Current occupational status: retired and disabled Current occupational exposures/hazards: No Cognitive needs: No Hearing needs: No Vision needs: No Review of Systems Const All systems reviewed & are unremarkable except as noted in HPI and below Physical Exam Vital Signs: Last Vital Signs Pulse 93 07/13/24 12:44 BP 120/80 07/13/24 12:44 Pulse Ox 98 07/13/24 12:44 Oxygen Delivery Method Room Air 07/13/24 12:44 Assessment & Plan Assessment & Plan (1) Rash: Code(s): R21 - Rash and other nonspecific skin eruption Plan: The patient presents with multifaceted dermatological issues, as multiple morphologies, including possible psoriasis, intertrigo with Roberta in the umbilicus and under the breasts, and suspected eczema on the nose. Likley eczema on the nose area, Triamcinolone cream can be used on the nose area down to the cheeks, avoiding near the eyes and not using for more than 5-7 days. Widespread, not confluent, itchy rash on the back with some scabbed over areas. This is the only area that is itchy. RX'd hydroxyzene for itching. The umbilical, extending to lower abdominal and bilateral groin infection, likely fungal, resistant to econazole, requires a dermatology referral. I have sent terbinafine the which the patient can trial while waiting for her dermatology appointment to be scheduled. Fluconazole is contraindicated due to medication interaction with Flecainide. An urgent referral to a dermatology clinic known for expedited scheduling was processed. Symptomatic alleviation for dryness should utilize skin emollients applied cautiously. The patient is advised to await dermatology contact for appointment scheduling, ensuring a thorough evaluation and management plan by specialists. Patient was informed and verbally consented to the use of an ambient scribe for clinic note documentation during this visit. Orders: Referrals Dermatology Referral R21 - Rash and other nonspecific skin eruption Medications: New terbinafine HCl 1% Apply to belly button area, lower abdomen and both folds of the groin twice daily for 14 days 1 appl topical BID 14 days 60 grams 0RF Coding Level of Care Code Est Pt Level 3 (30360) Diagnoses Rash R21
== END 2024-07-13 13:37 | disposition home or self-care (01) ==
PROVIDERS: PCP Nurse Practitioner Family; Visit Provider Physician Assistant
DX: R21 Rash and other nonspecific skin eruption (principal)

== ENCOUNTER → 2024-07-13 11:51 | Outpatient (BNVA) | payer MEDICARE, SELFPAY | PROVIDERS: PCP Nurse Practitioner Family; Visit Provider Physician Assistant | DX: R21 Rash and other nonspecific skin eruption (principal) | CPT/HCPCS: 99212 ==

== ENCOUNTER 2024-08-28 10:37 | Outpatient (AMB) | payer MEDICARE, SELFPAY ==
[2024-08-28 10:43] VITALS: BP 120/80; PULSE 83; O2SAT 97; BMI 34.1
--- NOTE | 2024-08-28 10:43 | MHC.PC.OV ---
Vital Signs 08/28/24 10:43 Height 5 ft 5 in Weight 205 lb BMI 34.1 BP 120/80 Blood Pressure Location Rt brachial Position Sitting Pulse 83 Pulse Source Pulse Oximeter Pulse Oximetry (%) 97 Oxygen Delivery Method Room Air Intake Visit Reasons: Annual Physical - see comments Mysql Dba Required: No Accompanied by: Self / Same As Patient Allergies No Known Allergies [No Known Allergies*] Allergy (Verified 08/28/24 11:12) Medication List - Last [facility]28[facility] atenolol 25 mg PO BID cetirizine 10 mg PO BID dabigatran etexilate 150 mg PO BID flecainide 100 mg PO Q12H hydrochlorothiazide 25 mg PO DAILY 90 days hydroxyzine HCl 50 mg PO BID PRN 10 days lisinopril 2.5 mg PO DAILY 90 days lorazepam 0.5 mg PO BID PRN 30 days omega-3 acid ethyl esters 1 cap PO DAILY 90 days pregabalin 50 mg PO TID 90 days rosuvastatin 20 mg PO DAILY 90 days venlafaxine ER 150 mg PO DAILY 90 days Tobacco use date assessed: 08/28/24 Fall risk assessment: No Falls in past year Last assessed Fall Risk: 08/28/24 Dental Screening Dental Screen Date: 08/28/24 Did you have a dental visit in the last 12 months?: No Did you have a dental problem in the last 6 months where you did not have access to dental care?: No Was dental information given to patient?: Patient declined HPI Annual Physical - see comments HPI Details History of Present Illness The patient is a 68-year-old female presenting for a physical exam and management of her chronic conditions. The patient has a history of Type 2 Diabetes Mellitus, which is currently well-controlled. Additionally, she is being followed for obesity and is noted to be effectively losing weight. She has a history of skin lesions, characterized by significant erythema in specific areas, with suspicion for psoriasis. These lesions were previously pruritic but are no longer. Her smoking history includes years of heavy smoking, though she has since quit. Although a low-dose CT scan of the chest was initially ordered to monitor risks associated with her smoking history, it is uncertain if the study was completed. An existing baseline nystagmus was observed. Cardiovascular assessment noted a systolic murmur and a right-sided carotid bruit, prompting the need for further examination through a carotid ultrasound. Lung sales were clear bilaterally. Previously noted swelling in the left lower extremity led to a workup that ruled out a deep vein thrombosis. Monofilament testing revealed intact sensation bilaterally in the feet, reassuring evaluation with regular mammogram and colon screening being up to date. Health Maintenance - Continued management of Type 2 Diabetes Mellitus with focus on monitoring A1c levels. - Surveillance for previous heavy smoking through low-dose CT scan (referred). - Routine cardiovascular assessment including systolic murmur monitoring and carotid ultrasound. - Weight management discussions, encouraging weight loss. - Mammography screening up to date. - Colon cancer screening up to date. - Bone density evaluation ordered. Social History - Former smoker with a heavy smoking history. - Engaged in weight loss with positive progress. Review of Systems - Dermatologic: Reports significant erythema, previously itchy. - Neurological: Reports baseline nystagmus. - Cardiovascular: Reports systolic murmur and carotid bruit. - Extremities: Reports previous left lower extremity swelling. -denies any si, cp, sob, bladder/bowel problems, n/v, fevers, chills. Physical Exam General: Cooperative, healthy appearing, comfortable, no acute distress and well developed. Obese, but losing weight. Orientation: Patient oriented x3 Limitations: No limitations Head: Normal to inspection Ears: Hearing grossly normal bilaterally Nose: Normal external nose present Face and sinus: Normal facial exam Eyes: Appearance normal, both eyes and all related structures. Baseline nystagmus noted. Neck: Normal visual inspection and Yes full ROM. Carotid bruits auscultated to right side. Respiratory: Normal respiratory effort and able to speak in complete sentences. Clear to auscultation bilaterally Cardiovascular: Regular rate and rhythm. Normal S1 and S2. Systolic murmur noted. GI: Normal to inspection. Soft to palpation and nontender. Significant erythema, especially to the entire abdomen. Skin: Significant erythema, especially to the entire abdomen, AC regions of elbows, wrists, back, and scalp. Question of psoriasis, erythematous, more macular type with a papular, raised appearance. Neuro: Patient oriented x3 Extremities: Normal to inspection. Some swelling to left lower extremity. Positive sensation with use of monofilament to bilateral feet intact. Results Plan I will continue with the current diabetic management, monitoring A1c and microalbumin levels. Weight management will focus on maintaining recent successful weight loss. A low-dose CT scan of the chest will be re-ordered given the patient's smoking history. The cardiovascular anomalies, including a systolic murmur and a carotid bruit, necessitate a carotid ultrasound referral. Skin erythema with possible psoriasis will remain under dermatological care. All regular screenings are up to date, ensuring comprehensive patient care. Discussion Notes I discussed the importance of maintaining well-controlled diabetes management, emphasizing routine monitoring of A1c and blood glucose levels. We reviewed her weight management progress and encouraged ongoing efforts for weight reduction, which positively impacts her overall health. I addressed the need to repeat a low-dose CT scan for surveillance due to prior heavy smoking history. The finding of a systolic murmur and right carotid bruit was highlighted, with a referral for carotid ultrasound agreed upon. The patient understands and consents to this plan, acknowledging the necessity of regular cardiovascular and dermatologic follow-up. Updated mammograms and colon screening were confirmed. Patient Instructions - Continue with your current diabetes management and monitor blood glucose regularly. - Focus on ongoing weight loss efforts by maintaining a healthy diet and regular exercise. - Follow up with the referred low-dose CT scan for lung evaluation due to smoking history. - Attend the scheduled carotid ultrasound to assess cardiovascular health. 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 - Ensure routine health screenings remain current. - Contact the office with any new symptoms or changes in health. [facility] Medical History Obstructive sleep apnea HTN (hypertension) Paroxysmal atrial fibrillation Depression Migraines Peripheral neuropathy Osteopenia Osteoarthritis Diabetes Surgical History History of lumpectomy of right breast History of total abdominal hysterectomy and bilateral salpingo-oophorectomy History of abdominal hernia History of partial colectomy Family History Father No problems noted. Mother Diabetes mellitus Maternal Grandmother Diabetes mellitus Stroke Maternal Grandfather Lung cancer Smoker Social History Housing: House Alcohol intake: never Patient Tobacco Use Status: Former Tobacco user Tobacco use type: Cigarette Years Smoked: 11/12/2011 e-Cigarette/Vaping Use: Never Used Substance Use Type: Marijuana service: No Current occupational status: retired and disabled Current occupational exposures/hazards: No Cognitive needs: No Hearing needs: No Vision needs: No Questionnaire PHQ-9 Over the last 2 weeks, how often have you been bothered by any of the following problems? 1. Little interest or pleasure in doing things: several days 2. Feeling down, depressed, or hopeless: several days 3. Trouble falling or staying asleep, or sleeping too much: several days 4. Feeling tired or having little energy: several days 5. Poor appetite or overeating: not at all 6. Feeling bad about yourself - or that you are a failure or have let yourself or your family down: not at all 7. Trouble concentrating on things, such as reading the newspaper or watching television: not at all 8. Moving or speaking so slowly that other people could have noticed. Or the opposite - being so fidgety or restless that you have been moving around a lot more than usual: not at all 9. Thoughts that you would be better off or of hurting yourself in some way: not at all Total score: 4 Depression Screening Interpretation: Negative Depression Screening Done: Yes 25394 - PHQ-9 Billing: Yes Source: Developed by Drs. Vaughn Moses, Kellie Mason, Alfonso López and colleagues, with an educational sarwat from [employer]. Thrive Questionnaire Date Thrive assessed: 08/28/24 I am a: Patient What is your living situation today?: I have a steady place to live Within the past 12 months, did the food you bought not last and you didn't have the money to get more?: Never true Within the past 12 months, did you worry whether your food would run out before you got money to buy more?: Never true Do you have trouble paying for medicines?: No Do you have trouble getting transportation to medical appointments?: No Do you have trouble paying your heating and electricity bill?: No Do you have trouble taking care of your child, family member or friend?: No Do you have trouble with day-to-day activities such as bathing, preparing meals, shopping, managing finances, etc.?: No Are you currently unemployed and looking for a job?: No Are you interested in more education?: No Please select the resources that you would like help with: None Currently or been in a relationship where the following occur: I choose not to answer THRIVE Score: 0 AUDIT C Alcohol Use Questionnaire (AUDIT-C) 1. How often do you have a drink containing alcohol?: Monthly or less 2. How many drinks containing alcohol do you have on a typical day when you are drinking?: 1 or 2 3. How often do you have six or more drinks on one occasion?: Never Total Score: 1 Score Reviewed/Action Taken: Yes CARMINA-7 AMB Questionnaire CARMINA-7 Date CARMINA - 7 assessed: 08/28/24 Feeling nervous, anxious, or on edge: 2 = More than half the days Not being able to stop or control worryin = More than half the days Worrying too much about different things: 1 = Several days Trouble relaxin = More than half the days Being so restless that it is hard to sit still: 1 = Several days Becoming easily annoyed or irritable: 1 = Several days Feeling afraid as if something awful might happen: 1 = Several days Total CARMINA-7 score (0-4 normal; 5-9 mild; 10-14 moderate; 15-21 severe): 10 Source: Developed by Drs. Vaughn Moses, Kellie Mason, Alfonso López and colleagues, with an educational sarwat from [employer]. CARMINA-7 Assessment Billing CARMINA-7 Assessment Tool: CARMINA-7 Assessment 98093 Physical exam (Primary Care) Vital Signs: Last Vital Signs Pulse 83 08/28/24 10:43 BP 120/80 08/28/24 10:43 Pulse Ox 97 08/28/24 10:43 Oxygen Delivery Method Room Air 08/28/24 10:43 BMI result Body Mass Index 34.1 Tobacco/Smoking Status: Tobacco use Status Tobacco use date assessed 08/28/24 08/28/24 10:45 Patient Tobacco Use Status Former Tobacco user 08/28/24 10:45 Tobacco use type Cigarette 08/28/24 10:45 e-Cigarette/Vaping Use Never Used 08/28/24 10:45 PHQ-9: PHQ-9 Score PHQ-9: Total score 4 08/28/24 10:58 Depression Screening Interpretation: Negative Thrive Assessment: Date of Thrive Assessment Date Thrive assessed 08/28/24 08/28/24 10:45 Currently or been in a relationship where the following occur: I choose not to answer Coding Level of Care Code Est Pt Level 3 (39341) Est Pt Prev Care >65y(53841) Diagnoses Smoker F17.200 Diabetes E11.9 Physical exam Z00.00 Left carotid bruit R09.89 Post-menopausal Z78.0 Additional Codes CARMINA-7 Assessment Billing - CARMINA-7 Assessment Tool: CARMINA-7 Assessment 13250 ([id number]) PHQ-9 - 57303 - PHQ-9 Billing: Yes ([id number]) Assessment & Plan Assessment & Plan (1) Smoker: Code(s): F17.200 - Nicotine dependence, unspecified, uncomplicated Category: Social Hx Plan: . (2) Diabetes: Code(s): E11.9 - Type 2 diabetes mellitus without complications Category: Medical (3) Physical exam: Code(s): Z00.00 - Encounter for general adult medical examination without abnormal findings Category: Medical (4) Left carotid bruit: Code(s): R09.89 - Other specified symptoms and signs involving the circulatory and respiratory systems Category: Medical (5) Post-menopausal: Code(s): Z78.0 - Asymptomatic menopausal state Category: Medical Plan . Orders: Orders Complete Blood Count Auto Diff Today E11.9 - Type 2 diabetes mellitus without complications, Z00.00 - Encounter for general adult medical examination without abnormal findings Lipid Panel Today E11.9 - Type 2 diabetes mellitus without complications, Z00.00 - Encounter for general adult medical examination without abnormal findings US carotid duplex BI Today R09.89 - Other specified symptoms and signs involving the circulatory and respiratory systems Comprehensive [place]. Panel Fast Today E11.9 - Type 2 diabetes mellitus without complications, Z00.00 - Encounter for general adult medical examination without abnormal findings TSH reflex Free T4 Today E11.9 - Type 2 diabetes mellitus without complications, Z00.00 - Encounter for general adult medical examination without abnormal findings UA CC w/rflx Micro + Cult Today E11.9 - Type 2 diabetes mellitus without complications, Z00.00 - Encounter for general adult medical examination without abnormal findings Hemoglobin A1c Today E11.9 - Type 2 diabetes mellitus without complications Microalbumin, Random (w Creat) Today E11.9 - Type 2 diabetes mellitus without complications XR DEXA axial skeleton Today E11.9 - Type 2 diabetes mellitus without complications, Z00.00 - Encounter for general adult medical examination without abnormal findings, Z78.0 - Asymptomatic menopausal state Referrals Lung Cancer Screening Referral F17.200 - Nicotine dependence, unspecified, uncomplicated
== END 2024-08-28 12:27 | disposition home or self-care (01) ==
LOC: HO.HMCC 10:38
PROVIDERS: PCP Nurse Practitioner Family; Visit Provider Nurse Practitioner Family
DX: Z00.00 Encounter for general adult medical examination without abnormal findings (principal); E11.9 Type 2 diabetes mellitus without complications; F17.200 Nicotine dependence, unspecified, uncomplicated; R09.89 Other specified symptoms and signs involving the circulatory and respiratory systems; Z78.0 Asymptomatic menopausal state

== ENCOUNTER → 2024-08-28 10:37 | Outpatient (BNVA) | payer MEDICARE, SELFPAY | PROVIDERS: PCP Nurse Practitioner Family; Visit Provider Nurse Practitioner Family | DX: Z00.00 Encounter for general adult medical examination without abnormal findings (principal); E11.9 Type 2 diabetes mellitus without complications; R09.89 Other specified symptoms and signs involving the circulatory and respiratory systems; Z78.0 Asymptomatic menopausal state; F17.200 Nicotine dependence, unspecified, uncomplicated; Z71.6 Tobacco abuse counseling | CPT/HCPCS: 96127; 99212; 99397 ==

== ENCOUNTER 2024-09-05 10:03 | Outpatient (REF) | payer MEDICARE, SELFPAY ==
[2024-09-05 13:16] LABS: MANUAL DIFF FLAG NO
[2024-09-05 13:33] LABS: Basophils Percent Auto 0.5 % (0-2); Eosinophils Absolute Auto 0.4 X10*3/uL (0.0-0.4); Eosinophils Percent Auto 4.9 % (0-4); Hematocrit 43.2 % (37.0-47.0); Hemoglobin 14.4 g/dl (12.0-16.0); Imm Gran Abs Auto 0.03 X10*3/uL (0.00-0.03); Imm Gran Pct Auto 0.4 % (0.0-0.4); Lymphocytes Absolute Auto 1.8 X10*3/uL (1.2-4.9); Lymphocytes Percent Auto 23.4 % (20-40); Mean Corpuscular HGB Conc 33.3 g/dl (31.0-35.0); Mean Corpuscular Hemoglobin 30.1 pg (27.0-33.0); Mean Corpuscular Volume 90.4 fL (80.0-98.0); Monocytes Absolute Auto 0.5 X10*3/uL (0.1-1.2); Monocytes Percent Auto 7.2 % (2-11); Neutrophils Absolute Auto 4.8 x10*3/uL (2.0-8.3); Neutrophils Percent Auto 63.6 % (45-73); Platelet Count 231 X10*3/uL (160-400); Red Blood Count 4.78 X10*6/uL (4.20-5.50); Red Cell Distribution Width 13.6 % (11.0-16.0); White Blood Count 7.6 X10*3/uL (4.8-10.8)
[2024-09-05 13:40] LABS: Estimated Average Glucose 117 mg/dL; Hemoglobin A1c % 5.7 % (<6.0); Total Hemoglobin (HGBA1C) 3782.7363 umol/L
[2024-09-05 13:50] LABS: Alanine Aminotransferase 14 U/L (0-31); Albumin Level 4.1 g/dL (3.5-5.0); Alkaline Phosphatase 79 U/L (39-117); Anion Gap 10 (12-20); Aspartate Amino Transferase 25 U/L (5-31); Bilirubin Total 0.5 mg/dL (0.0-1.0); Blood Urea Nitrogen 13 mg/dL (9-16); Calcium 9.7 mg/dL (8.4-10.2); Carbon Dioxide 31 mmol/L (22-29); Chloride 107 mmol/L (96-108); Cholesterol 140 mg/dL (<200); Estimated Glomerular Filt Rate > 60; Glucose Fasting 94 mg/dL (60-99); HDL Cholesterol 50 mg/dL (>40); LDL Cholesterol Calculated 71 mg/dL (<100); Potassium 4.8 mmol/L (3.3-5.1); Sodium 143 mmol/L (135-145); Total Protein 6.9 g/dL (6.5-8.0); Triglycerides 99 mg/dL (<150)
[2024-09-05 14:08] LABS: TSH reflex Free T4 0.99 uIU/mL (0.32-4.0)
== END 2024-09-05 10:04 | disposition home or self-care (01) ==
LOC: HO.HMGCLDS 10:03
PROVIDERS: PCP Nurse Practitioner Family; Visit Provider Nurse Practitioner Family
DX: Z00.00 Encounter for general adult medical examination without abnormal findings (principal); E11.9 Type 2 diabetes mellitus without complications
CPT/HCPCS: 36415; 80053; 80061; 83036; 84443; 85025

== ENCOUNTER 2024-10-05 12:47 | Outpatient (REF) | payer MEDICARE, SELFPAY ==
--- NOTE | ~2024-10-05 | US_ITS ---
CLINICAL HISTORY: R09.89 - Other specified symptoms and signs involving the circulatory an... --- Additional Notes or Special Instructions: Left carotid bruit US bilateral carotid duplex Comparison: None Provided Findings: Waveforms demonstrate normal pattern. Peak systolic velocities: Right CCA: 130 cm/s Right ICA: 102 cm/s ICA/CCA ratio: 0.78 Right ECA: Unremarkable Right vertebral artery flow antegrade. No significant plaque noted. Left CCA: 104 cm/s Left ICA: 104 cm/s ICA/CCA ratio: 1.0 Left ECA: Unremarkable Left vertebral artery flow antegrade. No significant plaque noted. Impression: No significant velocity altering stenosis This document has been electronically signed by: Charlie Franklin MD on 10/05/2024 21:37:00
== END 2024-10-05 12:48 | disposition home or self-care (01) ==
LOC: HO.HMGCX 12:47
PROVIDERS: PCP Nurse Practitioner Family; Visit Provider Nurse Practitioner Family
DX: R09.89 Other specified symptoms and signs involving the circulatory and respiratory systems (principal)
CPT/HCPCS: 93880

== ENCOUNTER → 2024-10-05 12:54 | Outpatient (BNV) | payer MEDICARE, SELFPAY | PROVIDERS: PCP Nurse Practitioner Family; Visit Provider Radiology Diagnostic Radiology | DX: R09.89 Other specified symptoms and signs involving the circulatory and respiratory systems (principal) | CPT/HCPCS: 93880 ==

== ENCOUNTER 2024-10-12 09:08 | Outpatient (REF) | payer MEDICARE, SELFPAY ==
--- NOTE | ~2024-10-12 | MM_ITS ---
EXAMINATION: DXA BONE DENSITY AXIAL HISTORY: E11.9 - Type 2 diabetes mellitus without complications TECHNIQUE: Zauber Dual energy absorptiometry (DEXA) of the lumbar spine, total left hip, and femoral neck was performed. COMPARISON: Comparison is made with the prior examination dated 12/09/2018. FINDINGS: The bone mineral density of the lumbar spine is 1.177 g/cm2, corresponding to a T-score of 0.1, and a Z-score of 0.9. This is indicative of normal bone mineral density. This represents a BMD change of 1.1% compared to the prior exam. This is not statistically significant. The bone mineral density of the left total hip is 0.776 g/cm2, corresponding to a T-score of -0.8, and a Z-score of -0.9. This is indicative of osteopenia. This represents a BMD change of -10.2% compared to the prior exam. This is statistically significant. The bone mineral density of the left femoral neck is 0.761 g/cm2, corresponding to a T-score of -2.0, and a Z-score of -0.8. This is indicative of osteopenia. This represents a BMD change of -6.9% compared to the prior exam. FRACTURE RISK: The FRAX index suggests a ten year probability of major osteoporotic fracture of 11.5%, and of hip fracture 2.3%. MM/XR DEXA axial skeleton IMPRESSION: Based on bone mineral density, and according to World Health Organization (WHO) criteria, the diagnosis is consistent with osteopenia. Statistically, 68% of repeat scans fall within 1 SD (+/- 0.010 g/cm2 for AP spine L1-L4) and 1 SD (+/- 0.012 g/cm2 for femur total) FRAX is a trademark of the [employer]'s [place] [facility] Metabolic Bone Disease, a World Health Organization (WHO) Collaborating Center. Electronically signed by: Vaughn Kelley MD 10/12/2024 09:53 AM EDT
== END 2024-10-12 09:09 | disposition home or self-care (01) ==
LOC: HO.MAMMO 09:08
PROVIDERS: PCP Nurse Practitioner Family; Visit Provider Nurse Practitioner Family
DX: Z13.820 Encounter for screening for osteoporosis (principal); Z78.0 Asymptomatic menopausal state
CPT/HCPCS: 77080

== ENCOUNTER → 2024-10-12 09:15 | Outpatient (BNV) | payer MEDICARE, SELFPAY | PROVIDERS: PCP Nurse Practitioner Family; Visit Provider Radiology Diagnostic Radiology | DX: E28.39 Other primary ovarian failure (principal) | CPT/HCPCS: 77080 ==

== ENCOUNTER 2025-01-12 09:35 | Outpatient (AMB) | payer MEDICARE, MEDICAID, SELFPAY ==
--- NOTE | 2025-01-12 08:08 | MHC.OFFVIS ---
Intake Visit Reasons: Former Smoker Allergies No Known Allergies (No Known Allergies*) Allergy (Verified 08/28/24 11:12) HPI HPI Former Smoker: Details: Initial visit for this 69yo smoker with a 40PYH. Patient started smoking at age 8 for 48 years at 1ppd. She quit 13yrs ago on 11/01/11. . Does note occasional marijuana use. Denies second hand smoke exposure. Denies exposure to chemicals or substances like asbestos. . Denies known family history of lung cancer. Denies personal history of cancers. Denies chest CT in last year. . Denies recent travel outside the [place]. Denies recent respiratory illness or recent hospitalization for respiratory issues. History testing positive for COVID. Admits receiving COVID Vaccine. . Denies fever, chills, new/worsening cough, hemoptysis, hoarseness or dysphagia. Denies significant chest pain, significant dyspnea or unintentional weight loss. Patient Lung Cancer Screening Questionnaire reviewed with patient by provider. . Shared Decision Making Completed. Patient meets criteria. Discussed in detail with patient, the risk vs benefit of LDCT screening. Patient consents to proceed with scan. Discussed smoking cessation. [facility] Medical History (Updated 01/12/25 @ 09:52 by Toya Nash PA-C) Paroxysmal atrial fibrillation HTN (hypertension) Diabetes Obstructive sleep apnea Personal history of nicotine dependence History of hyperplastic polyp of colon Macular degeneration Depression Migraines Peripheral neuropathy Osteopenia Osteoarthritis Surgical History (Updated 01/12/25 @ 09:55 by Toya Nash PA-C) History of colonoscopy History of lumpectomy of right breast History of total abdominal hysterectomy and bilateral salpingo-oophorectomy History of abdominal hernia History of partial colectomy Family History Father No problems noted. Mother Diabetes mellitus Maternal Grandmother Diabetes mellitus Stroke Maternal Grandfather Lung cancer Smoker Social History (Updated 01/12/25 @ 09:49 by Toya Nash PA-C) Housing: House Alcohol intake: never Patient Tobacco Use Status: Former Tobacco user Tobacco use type: Cigarette Years Smoked: (onset 8yo, 1ppd x 48yrs, 40pyh, quit 11/01/11) e-Cigarette/Vaping Use: Never Used Substance Use Type: Marijuana service: No Current occupational status: retired and disabled Current occupational exposures/hazards: No Cognitive needs: No Hearing needs: No Vision needs: No Assessment & Plan Assessment & Plan (1) Personal history of nicotine dependence: Comment: (onset 8yo, 1ppd x 48yrs, 40pyh, quit 11/01/11) Code(s): Z87.891 - Personal history of nicotine dependence Category: Medical Plan: - SDM visit completed today in office. - Patient meets criteria for LDCT for lung cancer screening purposes and is asymptomatic. - Smoking cessation counseling offered. Patients can always call [phone]. - Will arrange for a LDCT scan of the chest for screening purposes at [facility]. - Risks, benefits, and alternatives were discussed in detail and the patient agrees to proceed. - Risks discussed include but are not limited to: radiation exposure, anxiety during testing and while awaiting results, false negatives, false positives and possibility of additional intervention such as further imaging or surgical procedures for benign disease. - Benefits are obviously detection of lung cancer at an early stage which can lead to improved outcomes. - Discussed the importance of screening program compliance with adherence to yearly LDCT scan as scheduled - or sooner interval scans for personalized screening regimen. - Discussed follow up plan. Our office will send a letter discussing results and if needed set up phone call and office visit based on CT findings. - Patient educated on results categorization and the management decisions for suspicious findings potentially found on the screening LDCT scan. Any patient with a Lung RADS score of 3 or 4 will be reviewed by a multidisciplinary team at [facility] to form a plan of action in regards to scan findings. - If further work up is warranted for a suspicious lung finding this will be followed by the Lung Cancer Screening program in conjunction with the Thoracic Surgery Department at [facility]. - A copy of the office note and LDCT will be sent to the patient's PCP - as well as documentation on any associated further plans of care. - Incidental findings on LDCT are the PCP's responsibility. These findings are indicated with an S finding on the LDCT Assessment. A note discussing the findings will be sent to the PCP who is then responsible for further management. - All questions answered.? Coding Level of Care Code Lung Cancer Screening G0296 Diagnoses Personal history of nicotine dependence Z87.891
== END 2025-01-12 09:54 | disposition home or self-care (01) ==
LOC: HO.HPS 09:36
PROVIDERS: PCP Nurse Practitioner Family; Referring Provider Nurse Practitioner Family; Visit Provider Physician Assistant Medical
DX: Z87.891 Personal history of nicotine dependence (principal)
CPT/HCPCS: G0296

== ENCOUNTER 2025-01-12 10:11 | Outpatient (REF) | payer MEDICARE, MEDICAID, SELFPAY ==
--- NOTE | ~2025-01-12 | CT_ITS ---
EXAMINATION: CT LUNG SCREENING HISTORY: F17.210 - Nicotine dependence, cigarettes, uncomplicated TECHNIQUE: Low dose axial images were obtained from the sternal notch to upper abdomen without IV contrast per standard departmental protocol. Sagittal and coronal reformatted images were also obtained and reviewed. One or more of the following techniques was used for dose reduction: Automated exposure control, adjustment of the mA and/or kV according to patient size, use of iterative reconstruction technique. DLP: 97 mGy-cm COMPARISON: There are no prior studies available for comparison. FINDINGS: Lung nodules: There are scattered 2 mm nodules in the right upper lobe (series 4, images 23 and 29). In the right middle lobe, there is a 6 x 3 mm nodule (series 4, image 65) and additional smaller nodules more inferiorly (series 4, images 73 and 74). There is a 3 mm subpleural nodule in the right lobe (series 4, image 77). There is a 2 mm nodule in the right lower lobe (series 4, image 93). In the left upper lobe, there is a 3 mm nodule at the apex ((series 4, image 28). Emphysema: none Coronary Calcification: moderate Aortic Arch Calcification: mild Potentially Significant Incidentals : none Additional Chest Findings: There is no pleural or pericardial effusion. No mediastinal or axillary lymphadenopathy is identified. Visualized upper abdomen: The visualized portions of the liver, spleen, and adrenals have an unremarkable unenhanced appearance. There is a probable exophytic 1.6 cm right upper pole renal cyst. CT/CT lung screening IMPRESSION: No suspicious pulmonary nodules are identified. LUNG-RADS ASSESSMENT: Lung-RADS 2: Benign MANAGEMENT: Continue annual screening with LDCT in 12 months Category S: N/A Electronically signed by: Vaughn Kelley MD 01/12/2025 11:21 AM EDT
== END 2025-01-12 10:12 | disposition home or self-care (01) ==
LOC: HO.CT 10:11
PROVIDERS: PCP Nurse Practitioner Family; Visit Provider Physician Assistant Medical
DX: Z12.2 Encounter for screening for malignant neoplasm of respiratory organs (principal); F17.210 Nicotine dependence, cigarettes, uncomplicated
CPT/HCPCS: 71271; G0296

== ENCOUNTER → 2025-01-12 10:13 | Outpatient (BNV) | payer MEDICARE, MEDICAID, SELFPAY | PROVIDERS: PCP Nurse Practitioner Family; Visit Provider Radiology Diagnostic Radiology | DX: F17.210 Nicotine dependence, cigarettes, uncomplicated (principal) | CPT/HCPCS: 71271 ==

== ENCOUNTER 2025-02-27 09:55 | Outpatient (AMB) | payer MEDICARE, SELFPAY ==
[2025-02-27 10:00] VITALS: BP 130/72; PULSE 64; RESP 16; O2SAT 99; BMI 34.1
--- NOTE | 2025-02-27 10:00 | A.OFFPC_ITS ---
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 Required: No Accompanied by: Self / Same As Patient Allergies No Known Allergies (No Known Allergies*) Allergy (Verified 02/27/25 10:00) Medication List - Last Reconciled 02/27/25 [facility] atenolol 25 mg PO BID cetirizine 10 mg PO BID dabigatran etexilate 150 mg PO BID flecainide 100 mg PO Q12H hydrochlorothiazide 25 mg PO DAILY 90 days hydroxyzine HCl 50 mg PO BID PRN 10 days lisinopril 2.5 mg PO DAILY 90 days lorazepam 0.5 mg PO BID PRN 30 days omega-3 acid ethyl esters 1 cap PO DAILY 90 days pregabalin 50 mg PO TID 90 days rosuvastatin 20 mg PO DAILY 90 days venlafaxine ER 150 mg PO DAILY 90 days Tobacco use date assessed: 02/27/25 Fall risk assessment: No Falls in past year Last assessed Fall Risk: 02/27/25 Dental Screening Dental Screen Date: 02/27/25 Did you have a dental visit in the last 12 months?: Yes Did you have a dental problem in the last 6 months where you did not have access to dental care?: No Was dental information given to patient?: Patient has dentist HPI 6m follow up - see comments HPI Details Chief Complaint The patient presents for a follow-up visit for diabetes. History of Present Illness The patient is a 69 year old female presenting for a follow-up visit for diabetes. Her A1c is well-controlled, with recent results in the 5s. She has a history of aortic stenosis, for which a repeat echocardiogram will be ordered. Social History - Functional Status: The patient walks w ith a cane. Health Maintenance - The patient is due for an eye exam and will schedule the appointment. - She is due for a mammogram and will sc hedule the appointment. - An RSV vaccination is due. - Review of Systems - Cardiovascular: Denies chest pain or i ncreased shortness of breath. -denies any current neuropathy, polyuria , polydipsia. Physical Exam General: Cooperative, healthy appearing, comfortable, no acute distress and well developed Orientation: Patient oriented x3 Limitations: No limitations Head: Normal to inspection Ears: Hearing grossly normal bilaterally Nose: Normal external nose present Face and sinus: Normal facial exam Eyes: Appearance normal, both eyes and all related structures Neck: Normal visual inspection and Yes full ROM Respiratory: Normal respiratory effort and able to speak in complete sentences. Clear to auscultation bilaterally Cardiovascular: Systolic murmur noted. Regular rate and rhythm. Normal S1 and S2 GI: Normal to inspection. Soft to palpation and nontender Skin: No rashes or lesions noted Neuro: Patient oriented x3 Extremities: Walks with a cane. Feet intact bilat, positive sensation with use of monofilament to feet bilaterally. Normal to inspection Results - Labs: Hemoglobin A1c is in the 5s. Plan Patient was informed and verbally consented to the use of an ambient scribe for clinic note documentation during this visit. 1. Diabetes Mellitus The patient presents for a follow-up of her diabetes. Her recent hemoglobin A1c is in the 5s, indicating good control. She is due for a routine diabetic eye exam and will make an appointment. 2. Aortic Stenosis Given her history of aortic stenosis and a systolic murmur noted on exam, a repeat echocardiogram will be ordered for further evaluation. The patient denies any chest pain or increased shortness of breath. 3. Preventative Care The patient is due for and will schedule a mammogram. She is also due for an RSV vaccination. Discussion Notes I have provided the patient with a list of her pending health maintenance items. Patient Instructions - Make an appointment for an eye exam. - Make an appointment for a mammogram. - Get your RSV vaccination. [facility] Medical History Paroxysmal atrial fibrillation HTN (hypertension) Diabetes Obstructive sleep apnea Personal history of nicotine dependence History of hyperplastic polyp of colon Macular degeneration Depression Migraines Peripheral neuropathy Osteopenia Osteoarthritis Surgical History History of colonoscopy History of lumpectomy of right breast History of total abdominal hysterectomy and bilateral salpingo-oophorectomy History of abdominal hernia History of partial colectomy Family History Father No problems noted. Mother Diabetes mellitus Maternal Grandmother Diabetes mellitus Stroke Maternal Grandfather Lung cancer Smoker Social History Housing: House Alcohol intake: never Patient Tobacco Use Status: Former Tobacco user Tobacco use type: Cigarette Years Smoked: (onset 8yo, 1ppd x 48yrs, 40pyh, quit 11/01/11) e-Cigarette/Vaping Use: Never Used Substance Use Type: Marijuana service: No Current occupational status: retired and disabled Current occupational exposures/hazards: No Cognitive needs: No Hearing needs: No Vision needs: No Questionnaire PHQ-9 Over the last 2 weeks, how often have you been bothered by any of the following problems? 1. Little interest or pleasure in doing things: not at all 2. Feeling down, depressed, or hopeless: not at all 3. Trouble falling or staying asleep, or sleeping too much: not at all 4. Feeling tired or having little energy: not at all 5. Poor appetite or overeating: not at all 6. Feeling bad about yourself - or that you are a failure or have let yourself or your family down: not at all 7. Trouble concentrating on things, such as reading the newspaper or watching television: not at all 8. Moving or speaking so slowly that other people could have noticed. Or the opposite - being so fidgety or restless that you have been moving around a lot more than usual: not at all 9. Thoughts that you would be better off or of hurting yourself in some way: not at all Total score: 0 Depression Screening Interpretation: Negative Depression Screening Done: Yes 51405 - PHQ-9 Billing: Yes Source: Developed by Drs. Vaughn Moses, Kellie Mason, Alfonso López and colleagues, with an educational sarwat from [employer]. Thrive Questionnaire Date Thrive assessed: 08/27/24 I am a: Patient What is your living situation today?: I have a steady place to live Within the past 12 months, did the food you bought not last and you didn't have the money to get more?: Never true Within the past 12 months, did you worry whether your food would run out before you got money to buy more?: Never true Do you have trouble paying for medicines?: No Do you have trouble getting transportation to medical appointments?: No Do you have trouble paying your heating and electricity bill?: No Do you have trouble taking care of your child, family member or friend?: No Do you have trouble with day-to-day activities such as bathing, preparing meals, shopping, managing finances, etc.?: No Are you currently unemployed and looking for a job?: No Are you interested in more education?: No Please select the resources that you would like help with: None Currently or been in a relationship where the following occur: I choose not to answer THRIVE Score: 0 CARMINA-7 AMB Questionnaire CARMINA-7 Date CARMINA - 7 assessed: 02/27/25 Feeling nervous, anxious, or on edge: 0 = Not at all Not being able to stop or control worryin = Not at all Worrying too much about different things: 0 = Not at all Trouble relaxin = Not at all Being so restless that it is hard to sit still: 0 = Not at all Becoming easily annoyed or irritable: 0 = Not at all Feeling afraid as if something awful might happen: 0 = Not at all Total CARMINA-7 score (0-4 normal; 5-9 mild; 10-14 moderate; 15-21 severe): 0 Source: Developed by Drs. Vaughn Moses, Kellie Mason, Alfonso López and colleagues, with an educational sarwat from [employer]. CARMINA-7 Assessment Billing CARMINA-7 Assessment Tool: CARMINA-7 Assessment 99958 Physical exam (Primary Care) Vital Signs: Last Vital Signs Pulse 64 02/27/25 10:00 Resp 16 02/27/25 10:00 BP 130/72 02/27/25 10:00 Pulse Ox 99 02/27/25 10:00 Oxygen Delivery Method Room Air 02/27/25 10:00 BMI result Body Mass Index 34.1 Tobacco/Smoking Status: Tobacco use Status Tobacco use date assessed 02/27/25 02/27/25 10:02 Patient Tobacco Use Status Former Tobacco user 02/27/25 10:02 Tobacco use type Cigarette 02/27/25 10:02 e-Cigarette/Vaping Use Never Used 02/27/25 10:02 Depression Screening Interpretation: Negative Thrive Assessment: Date of Thrive Assessment Date Thrive assessed 08/27/24 02/27/25 10:02 Currently or been in a relationship where the following occur: I choose not to answer Results AMB Hemoglobin A1c AMB Hemoglobin A1c 5.5 % Last Edit by Ivania Bazan MA on 02/27/25 10:17 Coding Level of Care Code Est Pt Level 3 (02123) Diagnoses Diabetes E11.9 Vitamin D deficiency E55.9 Systolic murmur R01.1 Additional Codes CARMINA-7 Assessment Billing - CARMINA-7 Assessment Tool: CARMINA-7 Assessment 32570 ([id number]) PHQ-9 - 96342 - PHQ-9 Billing: Yes ([id number]) Assessment & Plan Assessment & Plan (1) Diabetes: Code(s): E11.9 - Type 2 diabetes mellitus without complications Category: Medical (2) Vitamin D deficiency: Code(s): E55.9 - Vitamin D deficiency, unspecified Category: Medical (3) Systolic murmur: Code(s): R01.1 - Cardiac murmur, unspecified Category: Medical Plan . Orders: Orders Comprehensive [place]. Panel Fast Today E11.9 - Type 2 diabetes mellitus without complications TSH reflex Free T4 Today E11.9 - Type 2 diabetes mellitus without complications AMB Hemoglobin A1c Today E11.9 - Type 2 diabetes mellitus without complications CA echo transthoracic complete 4 Months R01.1 - Cardiac murmur, unspecified Complete Blood Count Auto Diff Today E11.9 - Type 2 diabetes mellitus without complications UA CC w/rflx Micro + Cult Today E11.9 - Type 2 diabetes mellitus without complications Lipid Panel Today E11.9 - Type 2 diabetes mellitus without complications Microalbumin, Random (w Creat) Today E11.9 - Type 2 diabetes mellitus without complications Vitamin D 25-OH Total Today E55.9 - Vitamin D deficiency, unspecified
== END 2025-02-27 10:37 | disposition home or self-care (01) ==
LOC: HO.HMCC 09:56
PROVIDERS: PCP Nurse Practitioner Family; Visit Provider Nurse Practitioner Family
DX: E11.9 Type 2 diabetes mellitus without complications (principal); E55.9 Vitamin D deficiency, unspecified; R01.1 Cardiac murmur, unspecified

== ENCOUNTER → 2025-02-27 09:55 | Outpatient (BNVA) | payer MEDICARE, SELFPAY | PROVIDERS: PCP Nurse Practitioner Family; Visit Provider Nurse Practitioner Family | DX: E11.9 Type 2 diabetes mellitus without complications (principal); E55.9 Vitamin D deficiency, unspecified; R01.1 Cardiac murmur, unspecified; Z13.31 Encounter for screening for depression; Z13.39 Encounter for screening examination for other mental health and behavioral disorders | CPT/HCPCS: 83036; 96127; 99212 ==